=== PATIENT | female | born 1975 | race Caucasian/White ===

== ENCOUNTER 2016-06-04 19:51 | Emergency (ER) | payer SELFPAY ==
[~2016-06-04] VITALS: Ht 160 cm; Wt 168.0 kg
[~2016-06-04 19:51] MED LIST: METH750T2 PO; MOBI15TA PO; TRAZ50TA4 PO; ZIPR1CAP27 PO
[2016-06-04 19:54] VITALS: BP 233/110; PULSE 85; RESP 18; TEMP 98.8; O2SAT 98
[2016-06-05] MEDS ORDERED: SODIUM CHLOR 0.9% 1000 ML INJ 1,000 ML IV SCH (01:24)
--- NOTE | 2016-06-05 01:29 | PD ---
HPI Chief Complaint: GI Complaint Time Seen by Provider: 01:19 Travel History International Travel<30 days: No Contact w/Intl Traveler<30days: No Traveled to known affect area: No History of Present Illness HPI The patient is a 41-year-old female who presents to the emergency department for abdominal pain. The patient states she developed abdominal pain on night. The abdominal pain is epigastrium to right upper quadrant, burning, nonradiating, and associated with nausea and vomiting. The patient states that her vomitus smells like feces. The patient's last bowel movement was yesterday, normal. The patient denies any history of previous abdominal surgeries, but does have a history nephrolithiasis. The patient denies any dysuria, frequency, urgency, or diarrhea. She denies any associated fever. The patient occasionally goes to the [facility] for medical care, but does not have a local primary physician. The patient denies taking any medications on a regular basis. The symptoms are moderate, there are no alleviating or exacerbating factors. PFSH Past Medical History Asthma: No Autoimmune Disease: No Blood Disorders: No Anxiety: Yes Depression: Yes Cancer: No Cardiovascular Problems: No COPD: No Diabetes: No Diminished Hearing: No Endocrine: No Gastrointestinal Disorders: No Genitourinary: Yes (13 LITHOTRIPSY) Immune Disorder: No Kidney Stones: Yes Musculoskeletal: No Neurologic: No Psychiatric: No Reproductive: No Respiratory: No Immunizations Current: No Tetanus Vaccination: Unknown ?: Not LMP: 05/24/16 Menopausal: Yes : 4 Para: 4 Tubal Ligation: Yes (2005) Past Surgical History Abdominal Surgery: Yes Cardiac Surgery: No Section: Yes Ear Surgery: No Endocrine Surgery: Yes Eye Surgery: No Genitourinary Surgery: Yes (13 LITHOTRIPSIES HAS 4 STENTS RIGHT KIDNEY) Gynecologic Surgery: Yes (C SECTION, TUBAL LIGATION) Oral Surgery: No Pacemaker: No Thoracic Surgery: No Other Surgery: Yes Social History Alcohol Use: No (quit 2.5 years) Tobacco Use: Yes (02/15 ppd) Substance Use: No Allergies-Medications (Allergen,Severity, Reaction): Coded Allergies: Codeine (Verified Allergy, Unknown, VOMITTING, 06/04/16) Tramadol (Verified Adverse Reaction, Intermediate, gi upset, 06/04/16) Reported Meds & Prescriptions Reported Meds & Active Scripts Active No Active Prescriptions or Reported Medications Review of Systems Except as stated in HPI: all other systems reviewed are Neg General / Constitutional: No: Fever Cardiovascular: No: Chest Pain or Discomfort Respiratory: No: Shortness of Breath Gastrointestinal: Positive: Nausea, Vomiting, Abdominal Pain, No: Diarrhea, Changes in Bowel Habits Genitourinary: No: Dysuria Physical Exam Narrative GENERAL: Awake, alert, pleasant 41 year-old female who appears her stated age and is in no acute respiratory distress. SKIN: Focused skin assessment warm/dry. HEAD: Atraumatic. Normocephalic. EYES: No injection or drainage. ENT: No nasal bleeding or discharge. Poor dentition. NECK: Trachea midline. No JVD. CARDIOVASCULAR: Regular rate and rhythm. No murmur appreciated. RESPIRATORY: No accessory muscle use. Clear to auscultation. Breath sounds equal bilaterally. GASTROINTESTINAL: Abdomen soft, obese with a large pannus. Tender palpation epigastrium to periumbilical. Negative Montoya's. Negative McBurney's. Back: No CVA tenderness. MUSCULOSKELETAL: No obvious deformities. No clubbing. No cyanosis. No edema. NEUROLOGICAL: Awake and alert. No obvious cranial nerve deficits. Motor grossly within normal limits. Normal speech. PSYCHIATRIC: Appropriate mood and affect; insight and judgment normal. Data Data Last Documented VS Vital Signs Date Time Temp Pulse Resp B/P Pulse Ox O2 Delivery O2 Flow Rate FiO2 06/05/16 02:45 18 06/04/16 19:54 98.8 85 233/110 98 Room Air Orders Complete Blood Count With Diff (06/05/16 01:24) Comprehensive Metabolic Panel (06/05/16 01:24) Lipase (06/05/16 01:24) Urinalysis - C+S If Indicated (06/05/16 01:24) Ct Abd/Pel W/O Iv Contrast (06/05/16 01:24) Iv Access Insert/Monitor (06/05/16 01:24) Ecg Monitoring (06/05/16:24) Oximetry (06/05/16:24) Morphine Inj (Morphine Inj) (06/05/16 01:30) Ondansetron Inj (Zofran Inj) (06/05/16 01:30) Sodium Chlor 0.9% 1000 Ml Inj (Ns 1000 M (06/05/16 01:24) Sodium Chloride 0.9% Flush (Ns Flush) (06/05/16 01:30) Famotidine Inj (Pepcid Inj) (06/05/16 01:30) Al-Mag Hy-Si 40-40-4 Mg/Ml Liq (Mag-Al P (06/05/16 01:30) Lidocaine 2% Viscous (Xylocaine 2% Visco (06/05/16 01:30) Labs Laboratory Tests Test 06/05/16 06/05/16 06/05/16 01:30 01:55 02:21 Sodium Level 140 MEQ/L Potassium Level 3.2 MEQ/L Chloride Level 104 MEQ/L Carbon Dioxide Level 29.9 MEQ/L Anion Gap 6 MEQ/L Blood Urea Nitrogen 10 MG/DL Creatinine 0.78 MG/DL Estimat Glomerular Filtration 81 ML/MIN Rate Random Glucose 108 MG/DL Calcium Level 9.7 MG/DL Total Bilirubin 0.2 MG/DL Aspartate Amino Transf 20 U/L (AST/SGOT) Alanine Aminotransferase 23 U/L (ALT/SGPT) Alkaline Phosphatase 95 U/L Total Protein 7.9 GM/DL Albumin 3.9 GM/DL Lipase 59 U/L Urine Color YELLOW Urine Turbidity HAZY Urine pH 5.5 Urine Specific [place] 1.027 Urine Protein TRACE mg/dL Urine Glucose (UA) NEG mg/dL Urine Ketones NEG mg/dL Urine Occult Blood NEG Urine Nitrite NEG Urine Bilirubin NEG Urine Urobilinogen 2.0 MG/DL Urine Leukocyte Esterase TRACE Urine RBC 1 /hpf Urine WBC 4 /hpf Urine Squamous Epithelial 5 /hpf Cells Urine Bacteria RARE /hpf Urine Hyaline Casts 1 /lpf Urine Mucus FEW /lpf Microscopic Urinalysis Comment CULT NOT INDICATED White Blood Count 9.3 TH/MM3 Red Blood Count 4.76 MIL/MM3 Hemoglobin 14.5 GM/DL Hematocrit 41.7 % Mean Corpuscular Volume 87.7 FL Mean Corpuscular Hemoglobin 30.4 PG Mean Corpuscular Hemoglobin 34.7 % Concent Red Cell Distribution Width 13.4 % Platelet Count 288 TH/MM3 Mean Platelet Volume 8.8 FL Neutrophils (%) (Auto) 54.8 % Lymphocytes (%) (Auto) 30.4 % Monocytes (%) (Auto) 8.9 % Eosinophils (%) (Auto) 4.7 % Basophils (%) (Auto) 1.2 % Neutrophils # (Auto) 5.1 TH/MM3 Lymphocytes # (Auto) 2.8 TH/MM3 Monocytes # (Auto) 0.8 TH/MM3 Eosinophils # (Auto) 0.4 TH/MM3 Basophils # (Auto) 0.1 TH/MM3 CBC Comment DIFF FINAL Differential Comment MDM Medical Decision Making Medical Screen Exam Complete: Yes Emergency Medical Condition: Yes Medical Record Reviewed: Yes Interpretation(s) Last Impressions Abdomen/Pelvis CT 06/05/16 0124 Signed Impressions: Service Date/Time: Sunday, June 05, 2016 01:59 - CONCLUSION: Normal examination. Prince Echeverria Jr., MD Laboratory Tests Test 06/05/16 06/05/16 06/05/16 01:30 01:55 02:21 Sodium Level 140 MEQ/L Potassium Level 3.2 MEQ/L Chloride Level 104 MEQ/L Carbon Dioxide Level 29.9 MEQ/L Anion Gap 6 MEQ/L Blood Urea Nitrogen 10 MG/DL Creatinine 0.78 MG/DL Estimat Glomerular Filtration 81 ML/MIN Rate Random Glucose 108 MG/DL Calcium Level 9.7 MG/DL Total Bilirubin 0.2 MG/DL Aspartate Amino Transf 20 U/L (AST/SGOT) Alanine Aminotransferase 23 U/L (ALT/SGPT) Alkaline Phosphatase 95 U/L Total Protein 7.9 GM/DL Albumin 3.9 GM/DL Lipase 59 U/L Urine Color YELLOW Urine Turbidity HAZY Urine pH 5.5 Urine Specific [place] 1.027 Urine Protein TRACE mg/dL Urine Glucose (UA) NEG mg/dL Urine Ketones NEG mg/dL Urine Occult Blood NEG Urine Nitrite NEG Urine Bilirubin NEG Urine Urobilinogen 2.0 MG/DL Urine Leukocyte Esterase TRACE Urine RBC 1 /hpf Urine WBC 4 /hpf Urine Squamous Epithelial 5 /hpf Cells Urine Bacteria RARE /hpf Urine Hyaline Casts 1 /lpf Urine Mucus FEW /lpf Microscopic Urinalysis Comment CULT NOT INDICATED White Blood Count 9.3 TH/MM3 Red Blood Count 4.76 MIL/MM3 Hemoglobin 14.5 GM/DL Hematocrit 41.7 % Mean Corpuscular Volume 87.7 FL Mean Corpuscular Hemoglobin 30.4 PG Mean Corpuscular Hemoglobin 34.7 % Concent Red Cell Distribution Width 13.4 % Platelet Count 288 TH/MM3 Mean Platelet Volume 8.8 FL Neutrophils (%) (Auto) 54.8 % Lymphocytes (%) (Auto) 30.4 % Monocytes (%) (Auto) 8.9 % Eosinophils (%) (Auto) 4.7 % Basophils (%) (Auto) 1.2 % Neutrophils # (Auto) 5.1 TH/MM3 Lymphocytes # (Auto) 2.8 TH/MM3 Monocytes # (Auto) 0.8 TH/MM3 Eosinophils # (Auto) 0.4 TH/MM3 Basophils # (Auto) 0.1 TH/MM3 CBC Comment DIFF FINAL Differential Comment Differential Diagnosis Differential diagnosis includes gastritis, peptic ulcer disease, pancreatitis, bili or colic, cholecystitis, AAA, hiatal hernia, GERD. Narrative Course IV was established, labs are drawn and sent, and the patient was placed on cardiac telemetry monitoring and continuous pulse oximetry monitoring. The patient was administered morphine, Zofran, and IV fluids. CT of the abdomen and pelvis was ordered. CT of the abdomen and pelvis reveals a normal examination. Laboratory evaluation is unremarkable except for potassium 3.2, which was replaced orally. Lipase is slightly low at 59. Patient has epigastric abdominal pain, may have gastritis versus peptic ulcer disease. The patient will be placed on Zantac and is advised to follow-up with a primary physician. If her symptoms persist, patient will need outpatient follow-up with gastroenterology. The patient will be provided a copy of her labs at discharge. Diagnosis Primary Impression: Abdominal pain Qualified Code: R10.13 - Epigastric pain Additional Impression: Gastritis Qualified Code: K29.00 - Acute gastritis, presence of bleeding unspecified, unspecified gastritis type Patient Instructions: General Instructions, Narcotic given in the ED Additional Instructions: Zantac and Zofran as directed. Follow-up with your primary physician, you may benefit from outpatient follow-up with gastroenterology for EGD if symptoms persist. Return if symptoms worsen or progress. Med/Other Pt SpecificInfo: Prescription(s) given Scripts Ondansetron Odt (Zofran Odt)4 Mg Tab4 Mg SL Q6HR PRN (Nausea/Vomiting) #10 TAB Ref 0 Prov:Dakota Boston MD 06/05/16 Ranitidine (Zantac 150 Maximum Strength)150 Mg [id number] Mg PO BID 14 Days Prov:Dakota Boston MD 06/05/16 Disposition: DISCHARGE HOME Condition: Stable Dakota Boston MD Jun 05, 2016 01:29
[2016-06-05] MEDS ORDERED: FAMOTIDINE 20 MG/2 ML VIAL IV PUSH ONE (01:30)
[2016-06-05] MEDS ORDERED: MORPHINE SULFATE 4 MG/ML INJ IV PUSH ONE ×2 (01:30→03:30)
[2016-06-05] MEDS ORDERED: ALUMINUM/MAGNESIUM/SIMETH 30 ML CUP PO ONE (01:30)
[2016-06-05] MEDS ORDERED: SODIUM CHLORIDE 0.9% FLUSH 10 ML FLUSH IV FLUSH PRN (01:30)
[2016-06-05] MEDS ORDERED: ONDANSETRON HCL 4 MG/2 ML VIAL IVP ONE (01:30)
[2016-06-05] MEDS ORDERED: LIDOCAINE VISCOUS 2% SOLN 15 ML UDC PO ONE (01:30)
[2016-06-05 01:59] LABS: ANION GAP 6 MEQ/L (5-15); AST (GOT) 20 U/L (15-37); BICARBONATE 29.9 MEQ/L (21.0-32.0); BLOOD UREA NITROGEN 10 MG/DL (7-18); CHLORIDE 104 MEQ/L (98-107); GLOMERULAR FILTRATION RATE 81 ML/MIN (>89); POTASSIUM 3.2 MEQ/L (3.5-5.1); SODIUM (NA) 140 MEQ/L (136-145)
[2016-06-05 02:01] LABS: ALKALINE PHOSPHATASE 95 U/L (45-117); ALT (GPT) 23 U/L (10-53); TOTAL BILIRUBIN ADULT 0.2 MG/DL (0.2-1.0)
[2016-06-05 02:05] VITALS: O2SAT 97
[2016-06-05 02:11] LABS: BACTERIA, URINE RARE /hpf; BLOOD, URINE NEG (NEG); GLUCOSE,URINE NEG (NEG); HYALINE CAST, URINE 1 /lpf (RARE); KETONE, URINE NEG (NEG); MUCUS URINE FEW /lpf (OCC); NITRITE,URINE NEG (NEG); PH, URINE 5.5 (5.0-8.5); SQUAMOUS EPITHELIAL CELL URINE 5 /hpf (0-5); URINE COLOR YELLOW (YELLW/STRAW)
[2016-06-05 02:12] LABS: COMMENT (UR) CULT NOT INDICATED; CULTURE IF INDICATED CULT NOT INDICATED
--- NOTE | 2016-06-05 02:17 | RADRPT ---
EXAM DATE/TIME: 06/05/2016 01:59 [facility] COMPARISON: CT ABDOMEN & PELVIS W/O CONTRAST, September 08, 2013, 1:49. INDICATIONS : Right upper quadrant and epigastric pain. ORAL CONTRAST: No oral contrast ingested. RADIATION DOSE: 29.90 CTDIvol (mGy) MEDICAL HISTORY : Renal calculi. SURGICAL HISTORY : Tubal ligation. section. ENCOUNTER: Initial ACUITY: 1 day PAIN SCALE: 7/10 LOCATION: Abdomen TECHNIQUE: Volumetric scanning of the abdomen and pelvis was performed. Using automated exposure control and ad justment of the mA and/or kV according to patient size, radiation dose was kept as low as reasonably achievable to obtain optimal diagnostic quality images. FINDINGS: LOWER LUNGS: The visualized lower lungs are clear. LIVER: Homogeneous density without lesion. There is no dilation of the biliary tree. No calcified gallston es. SPLEEN: Normal size without lesion. PANCREAS: Within normal limits. KIDNEYS: Normal in size and shape. There is no mass, stone, or hydronephrosis. ADRENAL GLANDS: Within normal limits. VASCULAR: There is no aortic aneurysm. BOWEL/MESENTERY: The stomach, small bowel, and colon demonstrate no acute abnormality. There is no free intraperitone al air or fluid. Appendix is normal by CT criteria. ABDOMINAL WALL: Within normal limits. RETROPERITONEUM: There is no lymphadenopathy. BLADDER: No wall thickening or mass. REPRODUCTIVE: Within normal limits. INGUINAL: There is no lymphadenopathy or hernia. MUSCULOSKELETAL: Within normal limits for patient age. CONCLUSION: Normal examination. Prince Echeverria Jr., MD on June 05, 2016 at 2:13 Board Certified Radiologist. This report was verified electronically.
[2016-06-05 02:44] LABS: AUTOMATED NEUTROPHIL # 5.1 TH/MM3 (1.8-7.7); BASOPHIL # 0.1 TH/MM3 (0-0.2); BASOPHIL % 1.2 % (0.0-2.0); EOSINOPHIL # 0.4 TH/MM3 (0-0.4); EOSINOPHIL % 4.7 % (0.0-4.0); HEMATOCRIT 41.7 % (35.0-46.0); HEMO FLAGS DIFF FINAL; LYMPH % 30.4 % (9.0-44.0); LYMPHOCYTE # 2.8 TH/MM3 (1.0-4.8); MEAN CELL VOLUME 87.7 FL (80.0-100.0); MEAN CORPUSCULAR HEMOGLOBIN 30.4 PG (27.0-34.0); MEAN CORPUSCULAR HGB CONC 34.7 % (32.0-36.0); MONO % 8.9 % (0.0-8.0); NEUT % 54.8 % (16.0-70.0); PLATELET COUNT 288 TH/MM3 (150-450); RED BLOOD COUNT 4.76 MIL/MM3 (4.00-5.30); RED CELL DISTRIBUTION WIDTH 13.4 % (11.6-17.2); WHITE BLOOD COUNT 9.3 TH/MM3 (4.0-11.0)
[2016-06-05] MEDS ORDERED: ZANTTAB PO ×2 (03:23→03:57)
[2016-06-05] MEDS ORDERED: ZOFR4TAB3 SL ×2 (03:23→03:57)
[2016-06-05] MEDS ORDERED: POTASSIUM CHLORIDE 20 MEQ CONTROLLED RELEASE TAB PO ONE (03:30)
[2016-06-05 04:08] VITALS: RESP 18
== END 2016-06-05 04:07 | disposition home or self-care (01) ==
LOC: NEPC 19:51
DX: K29.00 Acute gastritis without bleeding (principal)
CPT/HCPCS: 74176; 80053; 81001; 83690; 85025; 96361; 96374; 96375; 96376; 99284; J2270; J2405; J7030

== ENCOUNTER 2016-12-01 08:37 | Emergency (ER) | payer MEDICAID ==
[~2016-12-01] VITALS: Ht 160 cm; Wt 170.0 kg
[~2016-12-01 08:37] MED LIST changes: -METH750T2 PO; -MOBI15TA PO; -TRAZ50TA4 PO; +ZANTTAB PO; -ZIPR1CAP27 PO; +ZOFR4TAB3 SL
[2016-12-01 08:39] VITALS: BP 196/128; PULSE 106; RESP 20; TEMP 98.9; O2SAT 98
[2016-12-01 09:24] VITALS: BP 279/148
[2016-12-01] MEDS ORDERED: AMLO5TAB2 PO (09:45)
[2016-12-01] MEDS ORDERED: PENICILLIN V POTASSIUM 500 MG TAB PO ONE (09:45)
[2016-12-01] MEDS ORDERED: HYDR-3533 PO (09:45)
[2016-12-01] MEDS ORDERED: amLODIPine BESYLATE 5 MG TAB PO ONE (09:45)
[2016-12-01] MEDS ORDERED: ACETAMINOPHEN/HYDROcodone 325 MG/5 MG TAB PO ONE (09:45)
[2016-12-01] MEDS ORDERED: PENI500T PO (09:45)
--- NOTE | 2016-12-01 09:46 | PD ---
HPI Chief Complaint: Oral / Dental Pain or Problem Time Seen by Provider: 09:15 Travel History International Travel<30 days: No Contact w/Intl Traveler<30days: No Traveled to known affect area: No History of Present Illness HPI 40 year-old woman, history of obesity, currently being evaluated for occult blood pressure, presents emergent heart complaining of dental pain. She has pain in her bottom left bicuspid where he recently fractured him ongoing for several days. Tried [id number] medications without relief. Pain radiates into the jaw and throughout the jaw. Pain is been severe. States she otherwise had been feeling well before this started. She has an appointment with her primary physician in the next several days address her blood pressure. States her blood pressures always been high since she stopped drinking. No chest pain. No trouble breathing. She states she's also been sick with cough cold congestion symptoms and blow her nose yesterday and ever some blood in it. No other complaints. She states she's taken some [id number] cough cold medicine but does not think she is taking anything with Sudafed or phenylephrine. History Past Medical History Narrative Medical Obesity Menopausal: Yes : 4 Para: 4 Social History Alcohol Use: No (quit 2.5 years) Tobacco Use: Yes (1/2 ppd) Allergies-Medications (Allergen,Severity, Reaction): Coded Allergies: codeine (Unverified Allergy, Unknown, VOMITTING, 12/01/16) tramadol (Unverified Adverse Reaction, Intermediate, gi upset, 12/01/16) Reported Meds & Prescriptions Reported Meds & Active Scripts Active No Active Prescriptions or Reported Medications Review of Systems Except as stated in HPI: all other systems reviewed are Neg Physical Exam Narrative GENERAL: Obese 40 year-old woman, no acute distress. SKIN: Focused skin assessment warm/dry. HEAD: Atraumatic. Normocephalic. EYES: Pupils equal and round. No scleral icterus. No injection or drainage. ENT: No nasal bleeding or discharge. Mucous membranes pink and moist. Poor dentition. She's got a fracture to obvious decay with tenderness to percussion in the left front bicuspid. There is minimal visible fullness to the left side of the face externally. Is no obvious fluctuance abscess or purulent drainage. NECK: Trachea midline. No JVD. CARDIOVASCULAR: Regular rate and rhythm. No murmur appreciated. RESPIRATORY: No accessory muscle use. Clear to auscultation. Breath sounds equal bilaterally. GASTROINTESTINAL: Abdomen soft, non-tender, nondistended. Hepatic and splenic margins not palpable. MUSCULOSKELETAL: No obvious deformities. Data Data Last Documented VS Vital Signs Date Time Temp Pulse Resp B/P (MAP) Pulse Ox O2 Delivery O2 Flow Rate FiO2 12/01/16 09:24 279/148 (191) 12/01/16 08:39 98.9 106 20 98 Room Air Orders Orders Acetamin-Hydrocod 325-5 Mg ([place] 5-325 (12/01/16 09:45) Penicillin V Potassium (Veetids) (12/01/16 09:45) Amlodipine (Norvasc) (12/01/16 09:45) MDM Medical Decision Making Medical Screen Exam Complete: Yes Emergency Medical Condition: Yes Differential Diagnosis Dental infection, abscess, odontalgia, other Narrative Course Medical decision making 38 year-old woman presents to the ED with dental pain and elevated blood pressure. No cardiac symptoms. Jaw pains clearly related to dental fracture and infection. We'll recommend antibiotics, pain medicine, and will start on oral blood pressure medication and have her follow-up with her primary physician in the next day or 2 for repeat evaluation. Diagnosis Primary Impression: Dental infection Additional Impression: Elevated blood pressure reading Med/Other Pt SpecificInfo: Prescription(s) given Scripts Amlodipine (Amlodipine) 5 Mg Tab 5 MG PO DAILY for Blood Pressure Management, #30 TAB 0 Refills Prov: Logan Graves MD 12/01/16 Hydrocodone-Acetaminophen (Lortab) 5-325 Mg Tab 1 TAB PO Q6H Y for PAIN, #8 TAB 0 Refills Prov: Logan Graves MD 12/01/16 Penicillin V Potassium (Penicillin V Potassium) 500 Mg Tab 500 MG PO Q8H for Infection for 10 Days, #30 TAB 0 Refills Prov: Logan Graves MD 12/01/16 Disposition: 01 DISCHARGE HOME Condition: Stable Logan Graves MD Dec 01, 2016 09:46
[2016-12-01 10:19] VITALS: RESP 18
== END 2016-12-01 10:20 | disposition home or self-care (01) ==
LOC: NEPD 08:37
DX: K04.7 Periapical abscess without sinus (principal); R03.0 Elevated blood-pressure reading, without diagnosis of hypertension; E66.9 Obesity, unspecified; Z72.0 Tobacco use
CPT/HCPCS: 99284

== ENCOUNTER 2017-01-14 07:44 | Emergency (ER) | payer MEDICAID ==
[~2017-01-14] VITALS: Ht 160 cm; Wt 176.0 kg
[~2017-01-14 07:44] MED LIST changes: +AMLO5TAB2 PO; +HYDR-3533 PO; +PENI500T PO; -ZANTTAB PO; -ZOFR4TAB3 SL
[2017-01-14] MEDS ORDERED: HYDR-4107 PO (07:54)
[2017-01-14] MEDS ORDERED: unknown bp med (07:54)
[2017-01-14 07:56] VITALS: BP 148/82; PULSE 101; RESP 19; TEMP 98.6; O2SAT 96
[2017-01-14] MEDS ORDERED: SODIUM CHLORIDE 0.9% FLUSH 10 ML FLUSH IV FLUSH PRN (08:00)
--- NOTE | 2017-01-14 08:05 | PD ---
HPI Chief Complaint: Flank/Kidney Pain Time Seen by Provider: 07:50 Travel History International Travel<30 days: No Contact w/Intl Traveler<30days: No Traveled to known affect area: No History of Present Illness HPI Patient comes in complaining of right flank pain began around 5 AM this morning. Patient states that pain feels similar to previous kidney stones. Patient also complaining of painful urination that began yesterday. Describes pain as a pressure-like in nature. Denies any fevers, nausea and vomiting, diarrhea, chest pain, or shortness of breath. Patient denies doing anything for this. Denies anything making symptoms better or worse. Patient reports she has hydrocodone at home for pain secondary to recent dental procedure but did not try taking this. PFSH Past Medical History Asthma: No Autoimmune Disease: No Blood Disorders: No Anxiety: Yes Depression: Yes Cancer: No Cardiovascular Problems: No COPD: No Diabetes: No Diminished Hearing: No Endocrine: No Gastrointestinal Disorders: No Genitourinary: Yes (13 LITHOTRIPSY) Headaches: Yes Hypertension: Yes Immune Disorder: No Kidney Stones: Yes Musculoskeletal: No Neurologic: No Psychiatric: No Reproductive: No Respiratory: No Immunizations Current: No ?: Not Menopausal: Yes : 4 Para: 4 Tubal Ligation: Yes (2005) Past Surgical History Abdominal Surgery: Yes Cardiac Surgery: No Section: Yes Ear Surgery: No Endocrine Surgery: Yes Eye Surgery: No Genitourinary Surgery: Yes (13 LITHOTRIPSIES ) Gynecologic Surgery: Yes (C SECTION, TUBAL LIGATION) Neurologic Surgery: No Oral Surgery: Yes (all teeth extracted for dentures) Pacemaker: No Thoracic Surgery: No Other Surgery: Yes Social History Alcohol Use: No (quit 2.5 years) Tobacco Use: Yes (1/2 ppd) Substance Use: No Allergies-Medications (Allergen,Severity, Reaction): Coded Allergies: codeine (Unverified Allergy, Unknown, VOMITTING, 01/14/17) tramadol (Unverified Adverse Reaction, Intermediate, gi upset, 01/14/17) Reported Meds & Prescriptions Reported Meds & Active Scripts Active Pyridium (Phenazopyridine HCl) 100 Mg Tab 200 Mg PO Q8HR 2 Days Bactrim DS (Sulfamethoxazole-Trimethoprim) 800-160 Mg Tab 1 Tab PO BID 14 Days Amlodipine (Amlodipine Besylate) 5 Mg Tab 5 Mg PO DAILY Penicillin V Potassium 500 Mg Tab 500 Mg PO Q8H 10 Days Reported Hydrocodone-Acetaminophen 5-300 Mg Tab 1 Tab PO Q6H PRN [unknown bp med] Review of Systems Except as stated in HPI: all other systems reviewed are Neg Physical Exam Narrative GENERAL: Well-developed, overly nourished, in no acute distress, and non-ill appearing. SKIN: Focused skin assessment warm and dry. HEAD: Atraumatic. Normocephalic. EYES: Pupils equal and round. EOMI. No scleral icterus. No injection or drainage. ENT: No nasal bleeding or discharge. Mucous membranes pink and moist. NECK: Trachea midline. Supple. No nuclear rigidity. RESPIRATORY: No accessory muscle use. No respiratory distress. GASTROINTESTINAL: Abdomen soft, non-tender, nondistended, and no guarding. Hepatic and splenic margins not palpable. Normal bowel sounds 4. No pulsatile mass. Patient reports right CVA tenderness. MUSCULOSKELETAL: No obvious deformities. No clubbing. No cyanosis. No edema. Full range of motion. NEUROLOGICAL: Awake and alert. No obvious cranial nerve deficits. Motor grossly within normal limits. Normal speech. PSYCHIATRIC: Appropriate mood and affect; insight and judgment normal. Data Data Last Documented VS Vital Signs Date Time Temp Pulse Resp B/P (MAP) Pulse Ox O2 Delivery O2 Flow Rate FiO2 01/14/17 10:16 01/14/17 07:56 98.6 101 19 96 Room Air Orders Orders Urinalysis - C+S If Indicated (01/14/17 07:52) Ct Abd/Pel W/O Iv Contrast (01/14/17 07:52) Iv Access Insert/Monitor (01/14/17 07:52) Ecg Monitoring (01/14/17 07:52) Oximetry (01/14/17 07:52) Sodium Chloride 0.9% Flush (Ns Flush) (01/14/17 08:00) Ketorolac Inj (Toradol Inj) (01/14/17 08:15) Urine Culture (01/14/17 08:07) Sulfamet-Trimeth Ds 800-160 Mg (Bactrim (01/14/17 09:45) Phenazopyridine (Pyridium) (01/14/17 09:45) Acetamin-Hydrocod 325-5 Mg ([place] 5-325 (01/14/17 10:00) Ed Discharge Order (01/14/17 09:50) Labs Laboratory Tests Test 01/14/17 08:07 Urine Color YELLOW Urine Turbidity HAZY Urine pH 5.5 Urine Specific [place] 1.020 Urine Protein 30 mg/dL Urine Glucose (UA) NEG mg/dL Urine Ketones NEG mg/dL Urine Occult Blood MOD Urine Nitrite POS Urine Bilirubin NEG Urine Urobilinogen LESS THAN 2.0 MG/DL Urine Leukocyte Esterase LARGE Urine RBC 102 /hpf Urine WBC 122 /hpf Urine Squamous Epithelial Cells 2 /hpf Urine Bacteria FEW /hpf Urine White Blood Cell Casts 10 /lpf Urine Mucus FEW /lpf Microscopic Urinalysis Comment CULTURE INDICATED MDM Medical Decision Making Medical Screen Exam Complete: Yes Emergency Medical Condition: Yes Interpretation(s) Last Impressions Abdomen/Pelvis CT 01/14/17 0752 Signed Impressions: Service Date/Time: Tuesday, January 14, 2017 08:41 - CONCLUSION: No acute CT findings in the abdomen or pelvis. Anatoliy Merchant MD Differential Diagnosis UTI, pyelonephritis, renal calculi, hydronephrosis Narrative Course The patient presentation with history and evaluation are consistent with uncomplicated pyelonephritis. The patient looks great and is tolerating fluids. No significant co morbidities. There is no evidence to suspect sepsis or bacteremia. The patient was discharged on antibiotics and given warnings to return if condition worsens in anyway, vomiting and unable to tolerate medications or fluids, worsening back pain or as needed. The patient agrees with plan of care. The patient was instructed to follow up with their physician for re-evaluation but may return here as needed. There is no clinical evidence to suggest atypical appendicitis, or vascular pathology (AAA, etc.). There is no clinical evidence to suggest atypical cervicitis, PID or TOA. Patient in no obvious distress upon re-evaluation. All pertinent laboratory/ Radiology result(s) discussed with patient. Patient was asked if they wanted to speak to my attending, which the patient did not wish to do at this time. Any questions/concerns in reference to patient diagnosis/condition discussed and clarified prior to patient's discharge. Reinforced sheer importance of close follow up with patient's primary physician or primary care clinic. Instructed patient to return to ED immediately, if symptoms return/worsen. Patient showed understanding of above instructions. Further instructions and recommendations were detailed in discharge paperwork. Patient ambulated without difficulty out of ED at discharge. Diagnosis Primary Impression: Pyelonephritis Patient Instructions: General Instructions, Kidney Infection (ED), Urinary Tract Infection in Women (ED) Additional Instructions: Follow-up with your primary care physician and/or urologist next week for reevaluation. Take all medication as prescribed. Drink plenty of non- caffeinated and nonalcoholic fluids. Return to the emergency department if symptoms get worse. Med/Other Pt SpecificInfo: Prescription(s) given Scripts Phenazopyridine (Pyridium) 100 Mg Tab 200 MG PO Q8HR for Dysuria for 2 Days, TAB 0 Refills Prov: Tristan Rouse MD 01/14/17 Sulfamethoxazole-Trimethoprim (Bactrim DS) 800-160 Mg Tab 1 TAB PO BID for Infection for 14 Days, #28 TAB 0 Refills Prov: Tristan Rouse MD 01/14/17 Disposition: 01 DISCHARGE HOME Condition: Stable Yamil Magallon Jan 14, 2017 08:05
[2017-01-14] MEDS ORDERED: KETOROLAC TROMETHAMINE 60 MG/2 ML (IM) VIAL IM ONE (08:15)
[2017-01-14 08:34] LABS: BACTERIA, URINE FEW /hpf; BLOOD, URINE MOD (NEG); COMMENT (UR) CULTURE INDICATED; CULTURE IF INDICATED CULTURE INDICATED; GLUCOSE,URINE NEG (NEG); KETONE, URINE NEG (NEG); MUCUS URINE FEW /lpf (OCC); NITRITE,URINE POS (NEG); PH, URINE 5.5 (5.0-8.5); SQUAMOUS EPITHELIAL CELL URINE 2 /hpf (0-5); URINE COLOR YELLOW (YELLW/STRAW); WHITE BLOOD CELL CAST, URINE 10 /lpf
--- NOTE | 2017-01-14 09:34 | RADRPT ---
EXAM DATE/TIME: 01/14/2017 08:41 [facility] COMPARISON: No previous studies available for comparison. INDICATIONS : Right flank pain. ORAL CONTRAST: No oral contrast ingested. RADIATION DOSE: 16.91 CTDIvol (mGy) MEDICAL HISTORY : None SURGICAL HISTORY : section. Tubal ligation. ENCOUNTER: Initial ACUITY: 1 day PAIN SCALE: 10/10 LOCATION: Right flank TECHNIQUE: Volumetric scanning of the abdomen and pelvis was performed. Using automated exposure control and ad justment of the mA and/or kV according to patient size, radiation dose was kept as low as reasonably achievable to obtain optimal diagnostic quality images. DICOM format image data is available electro nically for review and comparison. FINDINGS: LOWER LUNGS: The visualized lower lungs are clear. LIVER: Homogeneous density without lesion. There is no dilation of the biliary tree. No calcified gallston es. SPLEEN: Normal size without lesion. PANCREAS: Within normal limits. KIDNEYS: Normal in size and shape. There is no mass, stone, or hydronephrosis. ADRENAL GLANDS: Within normal limits. VASCULAR: There is no aortic aneurysm. BOWEL/MESENTERY: The stomach, small bowel, and colon demonstrate no acute abnormality. There is no free intraperitone al air or fluid. ABDOMINAL WALL: Within normal limits. RETROPERITONEUM: There is no lymphadenopathy. BLADDER: No wall thickening or mass. REPRODUCTIVE: Within normal limits. INGUINAL: There is no lymphadenopathy or hernia. MUSCULOSKELETAL: Within normal limits for patient age. CONCLUSION: No acute CT findings in the abdomen or pelvis. Anatoliy Merchant MD on January 14, 2017 at 9:27 Board Certified Radiologist. This report was verified electronically.
[2017-01-14] MEDS ORDERED: PHENAZOPYRIDINE HCL 200 MG TAB PO ONE (09:45)
[2017-01-14] MEDS ORDERED: SULFAMETHOXAZOLE-TRIMETHOPRIM DS 800-160 MG TAB PO ONE (09:45)
[2017-01-14] MEDS ORDERED: PHEN0.4T PO (09:53)
[2017-01-14] MEDS ORDERED: BACT800T5 PO (09:53)
[2017-01-14] MEDS ORDERED: ACETAMINOPHEN/HYDROcodone 325 MG/5 MG TAB PO ONE (10:00)
== END 2017-01-14 10:17 | disposition home or self-care (01) ==
LOC: NEPD 07:44
DX: N12 Tubulo-interstitial nephritis, not specified as acute or chronic (principal); B96.20 Unspecified Escherichia coli [E. coli] as the cause of diseases classified elsewhere; F41.9 Anxiety disorder, unspecified; F32.9 Major depressive disorder, single episode, unspecified; I10 Essential (primary) hypertension; F17.200 Nicotine dependence, unspecified, uncomplicated; Z79.899 Other long term (current) drug therapy; Z87.442 Personal history of urinary calculi; Z88.5 Allergy status to narcotic agent
CPT/HCPCS: 74176; 81001; 87077; 87086; 87186; 96372; 99285; J1885

== ENCOUNTER 2017-06-28 10:59 | Inpatient (IN) | payer MEDICAID ==
[2017-06-28] VITALS (7 sets, daily range): BP systolic 133–167; BP diastolic 67–98; PULSE 97–126; RESP 20–26; TEMP 98.4–100.8; O2SAT 92–98
[~2017-06-28] VITALS: Ht 160 cm; Wt 159.7 kg
[~2017-06-28 10:59] MED LIST changes: +BACT800T5 PO; -HYDR-3533 PO; +HYDR-4107 PO; +PHEN0.4T PO; +unknown bp med
[2017-06-28] MEDS ORDERED: IODIXANOL 320 MG/ML 50 ML VIAL (for Rad CT) IVCONTRAST ONE (11:00)
--- NOTE | 2017-06-28 11:41 | PD ---
HPI Chief Complaint: Fever Time Seen by Provider: 11:22 Travel History International Travel<30 days: No Contact w/Intl Traveler<30days: No Traveled to known affect area: No History of Present Illness HPI 42-year-old female presents to the emergency department for evaluation of abdominal pain, fever, drainage from the umbilicus for approximately 2 days. Patient has history tubal ligation and lithotripsies. Patient states that she has also been having intermittent fevers. She last took ibuprofen at 830 this morning, no Tylenol for fever today. Patient reports the abdominal pain is in the right side of her abdomen. She reports vomiting 2 last night. She also states that she has had shortness of breath and intermittent chest pain. Patient also reports urinary symptoms for 2 days. She reports history of UTIs. No diarrhea. No exacerbating or alleviating factors. Moderate severity. Patient states this does not feel like her previous kidney stones. She states the pain is 10/10, sharp and aching to the right abdomen. PFSH Past Medical History Asthma: No Autoimmune Disease: No Blood Disorders: No Anxiety: Yes Depression: Yes Cancer: No Cardiovascular Problems: No High Cholesterol: Yes COPD: No Diabetes: No Diminished Hearing: No Endocrine: No Gastrointestinal Disorders: No Genitourinary: Yes (13 LITHOTRIPSY) Headaches: Yes Hypertension: Yes Immune Disorder: No Kidney Stones: Yes Musculoskeletal: No Neurologic: No Psychiatric: No Reproductive: No Respiratory: No Immunizations Current: No ?: Not Menopausal: Yes : 4 Para: 4 Tubal Ligation: Yes (2005) Past Surgical History Abdominal Surgery: Yes Cardiac Surgery: No Section: Yes Ear Surgery: No Endocrine Surgery: Yes Eye Surgery: No Genitourinary Surgery: Yes (13 LITHOTRIPSIES ) Gynecologic Surgery: Yes (C SECTION, TUBAL LIGATION) Neurologic Surgery: No Oral Surgery: Yes (all teeth extracted for dentures) Pacemaker: No Thoracic Surgery: No Other Surgery: Yes Social History Alcohol Use: No (quit 2.5 years) Tobacco Use: Yes (<1/2 ppd) Substance Use: No Allergies-Medications (Allergen,Severity, Reaction): Coded Allergies: ketorolac (Verified Allergy, Intermediate, Swelling, 06/28/17) codeine (Unverified Allergy, Unknown, VOMITTING, 06/28/17) tramadol (Unverified Adverse Reaction, Intermediate, gi upset, 06/28/17) Reported Meds & Prescriptions Reported Meds & Active Scripts Active Pyridium (Phenazopyridine HCl) 100 Mg Tab 200 Mg PO Q8HR 2 Days Bactrim DS (Sulfamethoxazole-Trimethoprim) 800-160 Mg Tab 1 Tab PO BID 14 Days Amlodipine (Amlodipine Besylate) 5 Mg Tab 5 Mg PO DAILY Penicillin V Potassium 500 Mg Tab 500 Mg PO Q8H 10 Days Reported Hydrocodone-Acetaminophen 5-300 Mg Tab 1 Tab PO Q6H PRN [unknown bp med] Review of Systems Except as stated in HPI: all other systems reviewed are Neg Physical Exam Narrative GENERAL: Well-nourished, well-developed obese female patient, temp of 100.8. SKIN: Focused skin assessment warm/dry. Patient has erythema and purulent drainage noted to the umbilicus. No fluctuance noted on exam. HEAD: Normocephalic. Atraumatic. EYES: No scleral icterus. No injection or drainage. NECK: Supple, trachea midline. No JVD or lymphadenopathy. CARDIOVASCULAR: Regular rhythm without murmurs, gallops, or rubs. Patient is tachycardic. RESPIRATORY: Breath sounds equal bilaterally. No accessory muscle use. Lung sounds are clear to auscultation. Patient is tachypneic. GASTROINTESTINAL: Abdomen soft and nondistended. She has tenderness over epigastric area and right side of the abdomen. MUSCULOSKELETAL: No cyanosis, or edema. BACK: Nontender without obvious deformity. Right CVA tenderness. Data Data Last Documented VS Vital Signs Date Time Temp Pulse Resp B/P (MAP) Pulse Ox O2 Delivery O2 Flow Rate FiO2 06/28/17 13:15 106 142/98 (113) 06/28/17 11:09 100.8 26 98 Orders Orders Sepsis Workup Initiated (06/28/17 ) Electrocardiogram (06/28/17 11:31) Complete Blood Count With Diff (06/28/17 11:31) Comprehensive Metabolic Panel (06/28/17 11:31) Prothrombin Time / Inr (Pt) (06/28/17 11:31) Act Partial Throm Time (Ptt) (06/28/17 11:31) Lactic Acid Sepsis Protocol (06/28/17 11:31) Magnesium (Mg) (06/28/17 11:31) Lipase (06/28/17 11:31) Ckmb (Isoenzyme) Profile (06/28/17 11:31) Troponin I (06/28/17 11:31) Urinalysis - C+S If Indicated (06/28/17 11:31) Influenzae A/B Antigen (06/28/17 11:31) Blood Culture (06/28/17 11:31) Wound Culture And Gram Stain (06/28/17 11:31) Chest, Single Ap (06/28/17 11:31) Blood Glucose (06/28/17 11:31) Ecg Monitoring (06/28/17 11:31) Iv Access Insert/Monitor (06/28/17 11:31) Oximetry (06/28/17 11:31) Oxygen Administration (06/28/17 11:31) Acetaminophen (Tylenol) (06/28/17 11:45) Ct Abd/Pel W Iv Contrast(Rout) (06/28/17 11:31) Ed Urine Pregnancytest Poc (06/28/17 11:31) Sodium Chlor 0.9% 1000 Ml Inj (Ns 1000 M (06/28/17 11:45) Sodium Chlor 0.9% 1000 Ml Inj (Ns 1000 M (06/28/17 11:45) Morphine Inj (Morphine Inj) (06/28/17 11:45) Metoclopramide Inj (Reglan Inj) (06/28/17 11:45) Chest, Pa & Lat (06/28/17 ) Vancomycin Inj (Vancomycin Inj) (06/28/17 12:45) Piperacil-Tazo 3.375 Gm Premix (Zosyn 3. (06/28/17 12:45) Urine Culture (06/28/17 11:40) Morphine Inj (Morphine Inj) (06/28/17 13:30) Potassium Chloride (Kcl) (06/28/17 13:30) Potassium Chlor 20 Meq Premix (Kcl 20 Me (06/28/17 13:30) Iodixanol 320 Inj (Rad Ct) (Visipaque 32 (06/28/17 11:00) Admit Order (Ed Use Only) (06/28/17 14:49) Labs Laboratory Tests Test 06/28/17 11:40 06/28/17 12:00 06/28/17 12:05 Urine Color YELLOW Urine Turbidity CLOUDY Urine pH 6.0 Urine Specific [place] 1.016 Urine Protein 100 mg/dL Urine Glucose (UA) NEG mg/dL Urine Ketones NEG mg/dL Urine Occult Blood MOD Urine Nitrite POS Urine Bilirubin NEG Urine Urobilinogen LESS THAN 2.0 MG/DL Urine Leukocyte Esterase LARGE Urine RBC 5 /hpf Urine WBC /hpf Urine Squamous Epithelial Cells 14 /hpf Urine Bacteria FEW /hpf Microscopic Urinalysis Comment CATH-CULTURE IND White Blood Count 20.5 TH/MM3 Red Blood Count 3.83 MIL/MM3 Hemoglobin 11.4 GM/DL Hematocrit 33.3 % Mean Corpuscular Volume 86.7 FL Mean Corpuscular Hemoglobin 29.6 PG Mean Corpuscular Hemoglobin Concent 34.1 % Red Cell Distribution Width 14.5 % Platelet Count 306 TH/MM3 Mean Platelet Volume 9.3 FL Neutrophils (%) (Auto) 87.6 % Lymphocytes (%) (Auto) 5.4 % Monocytes (%) (Auto) 6.4 % Eosinophils (%) (Auto) 0.3 % Basophils (%) (Auto) 0.3 % Neutrophils # (Auto) 17.9 TH/MM3 Lymphocytes # (Auto) 1.1 TH/MM3 Monocytes # (Auto) 1.3 TH/MM3 Eosinophils # (Auto) 0.1 TH/MM3 Basophils # (Auto) 0.1 TH/MM3 CBC Comment DIFF FINAL Differential Comment Prothrombin Time 10.3 SEC Prothromb Time International Ratio 1.0 RATIO Activated Partial Thromboplast Time 37.1 SEC Blood Urea Nitrogen 23 MG/DL Creatinine 1.62 MG/DL Random Glucose 132 MG/DL Total Protein 7.5 GM/DL Albumin 2.3 GM/DL Calcium Level 9.1 MG/DL Magnesium Level 1.5 MG/DL Alkaline Phosphatase 121 U/L Aspartate Amino Transf (AST/SGOT) 19 U/L Alanine Aminotransferase (ALT/SGPT) 19 U/L Total Bilirubin 0.4 MG/DL Sodium Level 135 MEQ/L Potassium Level 2.3 MEQ/L Chloride Level 100 MEQ/L Carbon Dioxide Level 20.8 MEQ/L Anion Gap 14 MEQ/L Estimat Glomerular Filtration Rate 35 ML/MIN Total Creatine Kinase 89 U/L Troponin I LESS THAN 0.02 NG/ML Lipase 58 U/L Lactic Acid Level 1.0 mmol/L [facility] Medical Decision Making Medical Screen Exam Complete: Yes Emergency Medical Condition: Yes Medical Record Reviewed: Yes Interpretation(s) chest x-ray - CONCLUSION: 1. Subtle increased right upper lung zone parenchymal opacity may reflect developing airspace disease. Consider formal PA and lateral views of the chest for better evaluation. Chest x-ray PA and lateral - CONCLUSION: Acute air space disease right lung CT abdomen/pelvis - CONCLUSION: Right kidney has a mildly lobular configuration and is smaller in size as compared to the left consistent with scarring. Slight perinephric stranding on the left is nonspecific however pyelonephritis should be excluded. Differential Diagnosis UTI versus pyelonephritis versus cellulitis versus abdominal wall abscess versus pancreatitis versus cholecystitis versus appendicitis versus diverticulitis Narrative Course 42-year-old female presents to the emergency department for evaluation of fever , abdominal pain, drainage to the umbilicus for 2 days. EKG, CBC, CMP, lactic acid, magnesium, lipase, CK, troponin, PTT, PT/INR, UA, UPT, blood cultures 2, influenza are ordered and pending. Wound cultures taken from the umbilicus. Chest x-ray and CT abdomen/pelvis with IV contrast are ordered and pending. Patient is given normal saline 2 L IV bolus, morphine 4 mg IV, Reglan 10 mg IV, Tylenol 650 mg p.o. EKG shows sinus tachycardia, heart rate 111, diffuse T-wave changes. CBC shows leukocytosis 20.5, neutrophil percentage 87.6. CMP shows hypokalemia 2.3, BUN 23, creatinine 1.62. Lipase is 58. Magnesium is 1.5. CK is 89. Troponin is less than 0.02. Lactic acid is 1.0. Coags show no acute abnormality. UA shows moderate occult blood, positive nitrate, large leukocyte Estrace, innumerable WBC. UPT is negative. Influenza is negative. Chest x-ray shows Subtle increased right upper lung zone parenchymal opacity may reflect developing airspace disease. Consider formal PA and lateral views of the chest for better evaluation. Chest x-ray PA and lateral shows acute air space disease right lung. CT abdomen/pelvis shows right kidney has a mildly lobular configuration and is smaller in size as compared to the left consistent with scarring. Slight perinephric stranding on the left is nonspecific however pyelonephritis should be excluded. Patient was started on vancomycin 1 g IV, Zosyn 3.375 g IV to cover pneumonia as well as cellulitis to the umbilicus. Patient is given potassium 30 mEq p.o. , potassium 20 mEq IV. Hospitalist is arcadiod for admission. Dr. Rasmussen accepted admission. Sepsis Criteria SIRS Criteria (2 or more): Heart rate over 90, WBC > 66833, < 4000 or > 10% bands Sepsis Criteria (SIRS+source): Infect source susp/known Diagnosis Primary Impression: Pneumonia Qualified Codes: J18.9 - Pneumonia, unspecified organism Additional Impressions: Cellulitis of umbilicus Hypokalemia Pyelonephritis Sepsis Qualified Codes: A41.9 - Sepsis, unspecified organism Admitting Information Admitting Physician Requests: Admit Olamide Poole June 28, 2017 11:41
[2017-06-28] MEDS ORDERED: METOCLOPRAMIDE HCL 10 MG/2 ML VIAL IV PUSH ONE (11:45)
[2017-06-28] MEDS ORDERED: MORPHINE SULFATE 4 MG/ML INJ IV PUSH ONE ×2 (11:45→13:30)
[2017-06-28] MEDS ORDERED: SODIUM CHLOR 0.9% 1000 ML INJ 1,000 ML IV ONE ×2 (11:45)
[2017-06-28] MEDS ORDERED: ACETAMINOPHEN 325 MG TAB PO ONE (11:45)
--- NOTE | 2017-06-28 11:54 | RADRPT ---
EXAM DATE/TIME: 06/28/2017 11:37 [facility] COMPARISON: CT ABDOMEN & PELVIS W/O CONTRAST, January 14, 2017, 8:41. INDICATIONS : Chest pain, fever, shortness of breath, and abdominal pain. MEDICAL HISTORY : Kidney stones. UTI. SURGICAL HISTORY : section.Tubal ligation. Lithotripsy. Right kidney stents. Endocrine surgery. ENCOUNTER: Initial ACUITY: 3 days PAIN SCORE: 10/10 LOCATION: Bilateral chest FINDINGS: Subtle increased opacity in the right upper lung zone. Cardiomediastinal contours are within normal l imits. Bony thorax is intact. CONCLUSION: 1. Subtle increased right upper lung zone parenchymal opacity may reflect developing airspace disease . Consider formal PA and lateral views of the chest for better evaluation. Grabiel Anderson MD on June 28, 2017 at 11:49 Board Certified Radiologist. This report was verified electronically.
--- NOTE | 2017-06-28 12:35 | RADRPT ---
EXAM DATE/TIME: 06/28/2017 12:21 [facility] COMPARISON: No previous studies available for comparison. INDICATIONS : Abdomen pains entire abdomen. MEDICAL HISTORY : None. SURGICAL HISTORY : Tubal, Csection ENCOUNTER: Initial ACUITY: 4 - 6 days PAIN SCORE: 10/10 LOCATION: Bilateral abdomen FINDINGS: Increased opacity is seen throughout the right lung characteristic of acute air space disease. Left lung is clear. Heart is normal in size. CONCLUSION: Acute air space disease right lung Tyler Rodriguez MD on June 28, 2017 at 12:32 Board Certified Radiologist. This report was verified electronically.
[2017-06-28] MEDS ORDERED: VANCOMYCIN INJ 1,000 MG in SODIUM CHLOR 0.9% 250 ML INJ 250 ML IV ONE (12:45)
[2017-06-28] MEDS ORDERED: PIPERACIL-TAZO 3.375 GM PREMIX 50 ML IV ONE (12:45)
[2017-06-28 12:51] LABS: AUTOMATED NEUTROPHIL # 17.9 TH/MM3 (1.8-7.7); BASOPHIL # 0.1 TH/MM3 (0-0.2); BASOPHIL % 0.3 % (0.0-2.0); EOSINOPHIL # 0.1 TH/MM3 (0-0.4); EOSINOPHIL % 0.3 % (0.0-4.0); HEMATOCRIT 33.3 % (35.0-46.0); HEMOGLOBIN 11.4 GM/DL (11.6-15.3); LYMPH % 5.4 % (9.0-44.0); LYMPHOCYTE # 1.1 TH/MM3 (1.0-4.8); MEAN CELL VOLUME 86.7 FL (80.0-100.0); MEAN CORPUSCULAR HEMOGLOBIN 29.6 PG (27.0-34.0); MEAN CORPUSCULAR HGB CONC 34.1 % (32.0-36.0); MEAN PLATELET VOLUME 9.3 FL (7.0-11.0); MONO % 6.4 % (0.0-8.0); MONOCYTE # 1.3 TH/MM3 (0-0.9); NEUT % 87.6 % (16.0-70.0); PLATELET COUNT 306 TH/MM3 (150-450); RED BLOOD COUNT 3.83 MIL/MM3 (4.00-5.30); RED CELL DISTRIBUTION WIDTH 14.5 % (11.6-17.2); WHITE BLOOD COUNT 20.5 TH/MM3 (4.0-11.0)
[2017-06-28 12:55] LABS: BACTERIA, URINE FEW /hpf; BILIRUBIN, URINE NEG (NEG); BLOOD, URINE MOD (NEG); GLUCOSE,URINE NEG (NEG); KETONE, URINE NEG (NEG); NITRITE,URINE POS (NEG); SQUAMOUS EPITHELIAL CELL URINE 14 /hpf (0-5); URINE COLOR YELLOW (YELLW/STRAW); URINE LEUKOCYTE ESTERASE LARGE (NEG)
[2017-06-28 13:01] LABS: PROTHROMBIN TIME - PATIENT 10.3 SEC (9.8-11.6)
[2017-06-28 13:23] LABS: ALBUMIN 2.3 GM/DL (3.4-5.0); ALKALINE PHOSPHATASE 121 U/L (45-117); ALT (GPT) 19 U/L (10-53); AST (GOT) 19 U/L (15-37); BICARBONATE 20.8 MEQ/L (21.0-32.0); BLOOD UREA NITROGEN 23 MG/DL (7-18); CALCIUM 9.1 MG/DL (8.5-10.1); CHLORIDE 100 MEQ/L (98-107); CREATININE 1.62 MG/DL (0.50-1.00); GLOMERULAR FILTRATION RATE 35 ML/MIN (>89); GLUCOSE,RANDOM 132 MG/DL (74-106); MAGNESIUM 1.5 MG/DL (1.5-2.5); SODIUM (NA) 135 MEQ/L (136-145); TOTAL BILIRUBIN ADULT 0.4 MG/DL (0.2-1.0); TOTAL PROTEIN 7.5 GM/DL (6.4-8.2); TROPONIN I LESS THAN 0.02 NG/ML (0.02-0.05)
[2017-06-28] MEDS ORDERED: POTASSIUM CHLORIDE 20 MEQ CONTROLLED RELEASE TAB PO ONE (13:30)
[2017-06-28] MEDS ORDERED: POTASSIUM CHLOR 20 MEQ PREMIX 100 ML IV ONE (13:30)
--- NOTE | 2017-06-28 14:20 | RADRPT ---
EXAM DATE/TIME: 06/28/2017 13:57 [facility] COMPARISON: CT ABDOMEN & PELVIS W/O CONTRAST, January 14, 2017, 8:41. INDICATIONS : Patient with fever, diffuse abdominal pain and frequent UTIs. IV CONTRAST: 50 cc Visipaque (iodixanol) IV ORAL CONTRAST: No oral contrast ingested. RADIATION DOSE: 42.84 CTDIvol (mGy) ; Patient body habitus MEDICAL HISTORY : Hypertension. Renal calculi. SURGICAL HISTORY : Tubal ligation. lithrotripsy ENCOUNTER: Initial ACUITY: 1 day PAIN SCALE: 9/10 LOCATION: abdomen TECHNIQUE: Volumetric scanning of the abdomen and pelvis was performed. Using automated exposure control and ad justment of the mA and/or kV according to patient size, radiation dose was kept as low as reasonably achievable to obtain optimal diagnostic quality images. DICOM format image data is available electro nically for review and comparison. FINDINGS: Spleen, pancreas, adrenals are unremarkable. Mild hepatomegaly and hepatic steatosis. Gallbladder unr emarkable. Fat containing umbilical hernia. Urinary bladder, uterus and ovaries are unremarkable. No evidence of bowel obstruction. There are no renal calculi. The left kidney is enlarged as compared to the right with volume loss of the right kidney noted. There is a suggestion of mild perinephric stra nding on the left. There are degenerative changes of the spine. Patchy bilateral pulmonary infiltrate s are seen within the lungs on image #1. CONCLUSION: Right kidney has a mildly lobular configuration and is smaller in size as compared to the left consis tent with scarring. Slight perinephric stranding on the left is nonspecific however pyelonephritis sh ould be excluded. Favian Oleary MD on June 28, 2017 at 14:14 Board Certified Radiologist. This report was verified electronically.
[2017-06-28] MEDS ORDERED: AMLO5TAB2 PO (15:11)
[2017-06-28] MEDS ORDERED: FENO48TA PO (15:11)
[2017-06-28] MEDS ORDERED: HYDR25TA5 PO (15:11)
[2017-06-28] MEDS ORDERED: cloNIDine HCL 0.1 MG TAB PO PRN (15:30)
[2017-06-28] MEDS ORDERED: ACETAMINOPHEN 325 MG TAB PO PRN (15:30)
[2017-06-28] MEDS ORDERED: LACTULOSE SYRUP 20 GM/30 ML CUP PO PRN (15:30)
[2017-06-28] MEDS ORDERED: MAGNESIUM HYDROXIDE SUSP 30 ML CUP PO PRN (15:30)
[2017-06-28] MEDS ORDERED: SENNOSIDES 8.6 MG TAB PO PRN (15:30)
[2017-06-28] MEDS ORDERED: NALOXONE HCL 0.4 MG/ML AMP IV PUSH PRN ×2 (15:30)
[2017-06-28] MEDS ORDERED: Vancomycin Consult Pharmacy 1 EA OTHER SCH (15:30)
[2017-06-28] MEDS ORDERED: BISACODYL 10 MG SUPP RECTAL PRN (15:30)
[2017-06-28] MEDS ORDERED: SODIUM CHLORIDE 0.9% FLUSH 10 ML FLUSH IV FLUSH PRN (15:30)
[2017-06-28] MEDS: NICOTINE 7 MG/24 HR PATCH T-DERMAL SCH (15:30)
[2017-06-28] MEDS ORDERED: ONDANSETRON HCL 4 MG/2 ML VIAL IVP PRN (15:30)
--- NOTE | 2017-06-28 15:47 | HHI.HP ---
[facility] Service Family Medicine Primary Care Physician Anatoliy Paris MD Admission Diagnosis Pneumonia, pyelonephritis, hypokalemia, sepsis, cellulitis Diagnoses: International Travel<30 Days: No Contact w/Intl Traveler<30days: No Known Affected Area: No History of Present Illness 42-year-old female with history of HTN, osteoarthritis, sciatica, multiple kidney stones with over 13 lithotripsies, presents to the ED with fevers and abdominal pain. Patient reports that she has had 2 day history of severe stomach pain and fevers. She reports that her fever started 2 days ago, highest recorded at home orally was 103.2. She endorses chills. She states that around this time she started having belly pain around umbilical region and noticed that her belly button was erythematous and draining white pus. She denies history of umbilical hernia. Reports and tubal ligation in 2005. She also endorses right sided CVA tenderness and dysuria for the last couple days. Reports history of UTIs. Most recent UTI was in April and she was hospitalized at [facility] in [facility]. Reports that they treated her with Bactrim. She endorses one episode of nonbloody vomiting. She also endorses dry cough. Denies vaginal discharge, chest pain, shortness of breath, vaginal discharge, and diarrhea. She reports that she is planning to get gastric bypass surgery in the future. She states that she has lost 40 pounds in the past 6 months. She states that ever since she stopped drinking Mountain Dew, she has had severe kidney infections. She reports that she drank 12 cans of Mountain Dew per day for the past couple of years. (Linda Rasmussen MD R1) Review of Systems Constitutional: COMPLAINS OF: Fever, Weight loss (Intentional weight loss), Chills Eyes: DENIES: Blurred vision Ears, nose, mouth, throat: DENIES: Running Nose Respiratory: COMPLAINS OF: Cough, DENIES: Sputum production Cardiovascular: COMPLAINS OF: Dyspnea on Exertion, DENIES: Chest pain Gastrointestinal: COMPLAINS OF: Abdominal pain, Nausea, Vomiting, DENIES: Bloody stools, Diarrhea Genitourinary: COMPLAINS OF: Dysuria Integumentary: DENIES: Rash Neurologic: DENIES: Headache Psychiatric: DENIES: Confusion (Linda Rasmussen MD R1) Past Family Social History Past Medical History Osteoarthritis of the right knee Hypertension Sciatica History of kidney stones and UTIs, over 13 lithotripsies and hx of stent placed and removed in R kidney Past Surgical History Stent placed and removed in right kidney in 2005, tubal ligation 2006 Right arm surgery, plates and screws placed Reported Medications Reported Meds & Active Scripts Active Amlodipine (Amlodipine Besylate) 5 Mg Tab 5 Mg PO DAILY Hydrochlorothiazide 25 Mg Tab 25 Mg PO DAILY Fenofibrate 48 Mg Tab 48 Mg PO DAILY Amlodipine (Amlodipine Besylate) 5 Mg Tab 5 Mg PO DAILY Reported Hydrocodone-Acetaminophen 5-300 Mg Tab 1 Tab PO Q6H PRN (Linda Rasmussen MD R1) Allergies: Coded Allergies: ketorolac (Verified Allergy, Intermediate, Swelling, 06/28/17) codeine (Unverified Allergy, Unknown, VOMITTING, 06/28/17) tramadol (Unverified Adverse Reaction, Intermediate, gi upset, 06/28/17) Family History Mom, CHF, at 69. History of colon cancer at 42. DM Social History Patient is currently unemployed. She lives in [place] with her 27-year- old daughter. Patient smokes half pack per day, she used to smoke 1.5 packs per day. Patient is interested in quitting. Patient denies alcohol use and illicit drug use. (Linda Rasmussen MD R1) Physical Exam Vital Signs Vital Signs Date Time Temp Pulse Resp B/P (MAP) Pulse Ox O2 Delivery O2 Flow Rate FiO2 06/28/17 15:27 99.1 97 21 139/81 (100) 97 Room Air 06/28/17 13:15 106 142/98 (113) 06/28/17 11:09 100.8 126 26 143/67 (92) 98 Physical Exam GENERAL: Obese patient, lying in bed, in no acute distress SKIN: Erythematous and purulent drainage noted around the umbilicus. No fluctuance noted. HEAD: Atraumatic. Normocephalic. No temporal or scalp tenderness. EYES: Pupils equal round and reactive. Extraocular motions intact. No scleral icterus. No injection or drainage. ENT: Nose without bleeding, purulent drainage or septal hematoma. Throat without erythema, tonsillar hypertrophy or exudate. Uvula midline. Airway patent. NECK: Trachea midline. No JVD or lymphadenopathy. Supple, nontender, no meningeal signs. CARDIOVASCULAR: Regular rate and rhythm without murmurs, gallops, or rubs. RESPIRATORY: Decreased breath sounds on the right, mild crackles, no wheezing GASTROINTESTINAL: Right CVA tenderness, see skin exam above MUSCULOSKELETAL: Nonpitting edema in lower extremities NEUROLOGICAL: Awake and alert. Laboratory Laboratory Tests Test 06/28/17 11:40 06/28/17 12:00 06/28/17 12:05 Urine Color YELLOW Urine Turbidity CLOUDY Urine pH 6.0 Urine Specific [place] 1.016 Urine Protein 100 Urine Glucose (UA) NEG Urine Ketones NEG Urine Occult Blood MOD Urine Nitrite POS Urine Bilirubin NEG Urine Urobilinogen LESS THAN 2.0 Urine Leukocyte Esterase LARGE Urine RBC 5 Urine WBC Urine Squamous Epithelial Cells 14 Urine Bacteria FEW Microscopic Urinalysis Comment CATH-CULTURE IND White Blood Count 20.5 Red Blood Count 3.83 Hemoglobin 11.4 Hematocrit 33.3 Mean Corpuscular Volume 86.7 Mean Corpuscular Hemoglobin 29.6 Mean Corpuscular Hemoglobin Concent 34.1 Red Cell Distribution Width 14.5 Platelet Count 306 Mean Platelet Volume 9.3 Neutrophils (%) (Auto) 87.6 Lymphocytes (%) (Auto) 5.4 Monocytes (%) (Auto) 6.4 Eosinophils (%) (Auto) 0.3 Basophils (%) (Auto) 0.3 Neutrophils # (Auto) 17.9 Lymphocytes # (Auto) 1.1 Monocytes # (Auto) 1.3 Eosinophils # (Auto) 0.1 Basophils # (Auto) 0.1 CBC Comment DIFF FINAL Differential Comment Prothrombin Time 10.3 Prothromb Time International Ratio 1.0 Activated Partial Thromboplast Time 37.1 Blood Urea Nitrogen 23 Creatinine 1.62 Random Glucose 132 Total Protein 7.5 Albumin 2.3 Calcium Level 9.1 Magnesium Level 1.5 Alkaline Phosphatase 121 Aspartate Amino Transf (AST/SGOT) 19 Alanine Aminotransferase (ALT/SGPT) 19 Total Bilirubin 0.4 Sodium Level 135 Potassium Level 2.3 Chloride Level 100 Carbon Dioxide Level 20.8 Anion Gap 14 Estimat Glomerular Filtration Rate 35 Total Creatine Kinase 89 Troponin I LESS THAN 0.02 Lipase 58 Lactic Acid Level 1.0 Date/Time Source Procedure Growth Status 06/28/17 12:30 Blood Peripheral Aerobic Blood Culture Pending Received 06/28/17 12:30 Blood Peripheral Anaerobic Blood Culture Pending Received 06/28/17 12:35 Nasal Aspirate Influenza Types A,B Antigen (ARNOLD) - Final NEGATIVE FOR FLU A AND B ANTIGEN.... Complete 06/28/17 11:40 Urine Catheterized Urine Urine Culture Pending Received 06/28/17 11:40 Wound Abdomen Gram Stain - Final Resulted 06/28/17 11:40 Wound Abdomen Wound Culture Pending Resulted (Linda Rasmussen MD R1) Result Diagram: 06/28/17 1200 06/28/17 1200 Septic Shock Reassessment Septic shock perfusion: reassessment completed (Linda Rasmussen MD R1) Caprini VTE Risk Assessment Caprini VTE Risk Assessment: Mod/High Risk (score >= 2) Caprini Risk Assessment Model Point Value = 1 Point Value = 2 Point Value = 3 Point Value = 5 Age 41-60 Minor surgery BMI > 25 kg/m2 Swollen legs Varicose veins or History of unexplained or recurrent spontaneous Oral contraceptives or hormone replacement Sepsis (< 1 month) Serious lung disease, including pneumonia (< 1 month) Abnormal pulmonary function Acute myocardial infarction Congestive heart failure (< 1 month) History of inflammatory bowel disease Medical patient at bed rest Age 61-74 Arthroscopic surgery Major open surgery (> 45 min) Laparoscopic surgery (> 45 min) Malignancy Confined to bed (> 72 hours) Immobilizing plaster cast Central venous access Age >= 75 History of VTE Family history of VTE Factor V Leiden Prothrombin [id number] Lupus anticoagulant Anticardiolipin antibodies Elevated serum homocysteine Heparin-induced thrombocytopenia Other congenital or acquired thrombophilia Stroke (< 1 month) Elective arthroplasty Hip, pelvis, or leg fracture Acute spinal cord injury (< 1 month) Prophylaxis Regimen Total Risk Factor Score Risk Level Prophylaxis Regimen 0-1 Low Early ambulation 2 Moderate Order ONE of the following: *Sequential Compression Device (SCD) *Heparin 5000 units SQ BID 3-4 Higher Order ONE of the following medications: *Heparin 5000 units SQ TID *Enoxaparin/Lovenox 40 mg SQ daily (WT < 150 kg, CrCl > 30 mL/min) *Enoxaparin/Lovenox 30 mg SQ daily (WT < 150 kg, CrCl > 10-29 mL/min) *Enoxaparin/Lovenox 30 mg SQ BID (WT < 150 kg, CrCl > 30 mL/min) AND/OR *Sequential Compression Device (SCD) 5 or more Highest Order ONE of the following medications: *Heparin 5000 units SQ TID (Preferred with Epidurals) *Enoxaparin/Lovenox 40 mg SQ daily (WT < 150 kg, CrCl > 30 mL/min) *Enoxaparin/Lovenox 30 mg SQ daily (WT < 150 kg, CrCl > 10-29 mL/min) *Enoxaparin/Lovenox 30 mg SQ BID (WT < 150 kg, CrCl > 30 mL/min) AND *Sequential Compression Device (SCD) (Linda Rasmussen MD R1) Assessment and Plan Assessment and Plan 42-year-old female with history of HTN, osteoarthritis, sciatica, multiple kidney stones with over 13 lithotripsies, presents to the ED with fevers and abdominal pain. Patient admitted for severe sepsis and workup. Code Status Full code Discussed Condition With Dr. Hernández and Dr. Ayala (Linda Rasmussen MD R1) Problem List: (1) Severe sepsis ICD Codes: A41.9 - Sepsis, unspecified organism; R65.20 - Severe sepsis without septic shock Plan: Patient meets severe sepsis criteria due to fever of 100.8, tachycardia at 126 and WBC of 20.5 with known source of infection (pyelonephritis, pneumonia , cellulitis of umbilicus) and organ damage (creatinine elevated at 1.62). Labs and Imaging: WBC elevated at 20.5 with left shift Hypokalemic at 2.3 BUN of 23, creatinine of 1.62 Lactic acid of 1.0 Blood cultures pending Chest x-ray demonstrates increased right upper lung zone parenchymal opacity may reflect developing airspace disease Abdominal CT demonstrates right kidney with a mildly low with a lobular configuration and is smaller in size as compared to the left consistent with scarring. Slight perinephric stranding on the left. Treatment: Patient received 1 dose of vancomycin and Zosyn in the ED Continue with vancomycin, consult pharmacy for dosing Continue Zosyn 3.375 g IV every 6h N.p.o. Normal saline 250mls/hr, maintenance rate (2) Pyelonephritis ICD Codes: N12 - Tubulo-interstitial nephritis, not specified as acute or chronic Status: Acute Plan: Patient has history of multiple kidney stones and history of UTIs UA positive for large leukocyte esterases, positive nitrates, bacteria. CT demonstrate slight perinephric stranding on the left. Urine culture pending, will wait for sensitivities and narrow antibiotics as needed Continue antibiotics above Urology consulted, appreciate recommendations (3) Pneumonia ICD Codes: J18.9 - Pneumonia, unspecified organism Status: Acute Plan: Chest x-ray positive for right upper lung zone parenchymal opacity Patient not requiring oxygen at this time Continue antibiotics as above Start prednisone 40 mg p.o. daily Duo nebs every 6h (4) Cellulitis of umbilicus ICD Codes: L03.316 - Cellulitis of umbilicus Status: Acute Plan: Erythematous and purulent drainage of the umbilicus Culture pending General surgery consulted for possible I&D, appreciate recommendations (5) HTN (hypertension) ICD Codes: I10 - Essential (primary) hypertension Plan: Continue home amlodipine 5 mg p.o. daily Clonidine 0.1 mg p.o. every 6 hours as needed for blood pressure greater than 180/100 (6) Hypokalemia ICD Codes: E87.6 - Hypokalemia Status: Acute Plan: Potassium of 2.3 on admission once in the ED Patient received 40meq KCL PO in the ED Will continue to trend K+ with BMP (7) Smoking ICD Codes: F17.200 - Nicotine dependence, unspecified, uncomplicated Plan: Nicotine patch 7mg q24hr (8) Nutrition, metabolism, and development symptoms ICD Codes: R63.8 - Other symptoms and signs concerning food and fluid intake Plan: Diet: N.p.o. except meds Fluids: 250 mls/hr Electrolytes:replace as needed Vitals every 4, monitor I's and O's DVT ppx: SCDs PT consulted (Linda Rasmussen MD R1) Problem List: (1) Severe sepsis ICD Codes: A41.9 - Sepsis, unspecified organism; R65.20 - Severe sepsis without septic shock Plan: Patient meets severe sepsis criteria due to fever of 100.8, tachycardia at 126 and WBC of 20.5 with known source of infection (pyelonephritis, pneumonia , cellulitis of umbilicus) and organ damage (creatinine elevated at 1.62). Labs and Imaging: WBC elevated at 20.5 with left shift Hypokalemic at 2.3 BUN of 23, creatinine of 1.62 Lactic acid of 1.0 Blood cultures pending Chest x-ray demonstrates increased right upper lung zone parenchymal opacity may reflect developing airspace disease Abdominal CT demonstrates right kidney with a mildly low with a lobular configuration and is smaller in size as compared to the left consistent with scarring. Slight perinephric stranding on the left. Treatment: Patient received 1 dose of vancomycin and Zosyn in the ED Continue with vancomycin, consult pharmacy for dosing Continue Zosyn 3.375 g IV every 6h N.p.o. Normal saline 250mls/hr, maintenance rate (2) Pyelonephritis ICD Codes: N12 - Tubulo-interstitial nephritis, not specified as acute or chronic Status: Acute Plan: Patient has history of multiple kidney stones and history of UTIs UA positive for large leukocyte esterases, positive nitrates, bacteria. CT demonstrate slight perinephric stranding on the left. Urine culture pending, will wait for sensitivities and narrow antibiotics as needed Continue antibiotics above Urology consulted, appreciate recommendations (3) Pneumonia ICD Codes: J18.9 - Pneumonia, unspecified organism Status: Acute Plan: Chest x-ray positive for right upper lung zone parenchymal opacity Patient not requiring oxygen at this time Continue antibiotics as above Start prednisone 40 mg p.o. daily Duo nebs every 6h (4) Cellulitis of umbilicus ICD Codes: L03.316 - Cellulitis of umbilicus Status: Acute Plan: Erythematous and purulent drainage of the umbilicus Culture pending General surgery consulted for possible I&D, appreciate recommendations (5) HTN (hypertension) ICD Codes: I10 - Essential (primary) hypertension Plan: Continue home amlodipine 5 mg p.o. daily Clonidine 0.1 mg p.o. every 6 hours as needed for blood pressure greater than 180/100 (6) Hypokalemia ICD Codes: E87.6 - Hypokalemia Status: Acute Plan: Potassium of 2.3 on admission once in the ED Patient received 40meq KCL PO in the ED Will continue to trend K+ with BMP (7) Smoking ICD Codes: F17.200 - Nicotine dependence, unspecified, uncomplicated Plan: Nicotine patch 7mg q24hr (8) Nutrition, metabolism, and development symptoms ICD Codes: R63.8 - Other symptoms and signs concerning food and fluid intake Plan: Diet: N.p.o. except meds Fluids: 250 mls/hr Electrolytes:replace as needed Vitals every 4, monitor I's and O's DVT ppx: SCDs PT consulted See the residents documentation for details. I saw and evaluated the patient regarding the mazariegos portions of this evaluation and agree with the residents findings and plans as written. Parts of this note were created using [email or web address] voice recognition software program. While efforts were made to correct any mistakes made by this software, some mistakes, errors, and omissions may remain in the final note that were not caught when the note was originally created. Plan of care was discussed and agreed upon with the patient as specifically documented in the above note. An opportunity to ask questions with explanation was provided. Patient voiced understanding on all information reviewed and discussed. (Shiv Hernández MD) Physician Certification 2 Midnight Certification Type: Admission for Inpatient Services Order for Inpatient Services The services are ordered in accordance with Medicare regulations or non- Medicare payer requirements, as applicable. In the case of services not specified as inpatient-only, they are appropriately provided as inpatient services in accordance with the 2-midnight benchmark. Estimated LOS (days): 2 2 days is the estimated time the patient will need to remain in the hospital, assuming treatment plan goals are met and no additional complications. Post-Hospital Plan: Home (Linda Rasmussen MD R1) Problem Qualifiers (1) Pneumonia: Qualified Codes: J18.9 - Pneumonia, unspecified organism Linda Rasmussen MD R1 June 28, 2017 15:47 Shiv Hernández MD June 29, 2017 12:50
--- NOTE | 2017-06-28 16:44 | PD.CONS ---
HPI Service Urology Consult Requested By Dr Rasmussne Reason for Consult Pyelonephritis Primary Care Physician Anatoliy Paris MD Diagnosis: History of Present Illness 42 y.o F with h/o kidney stones, last intervention had 4y/a, she had litho with stent placement. Admits having more then 10stones at that time. She came to ER today with fever, chills frequency dysuria and right > left abd pain. Her white count is 20.5 and fever 100.8. Her urine test is suspicious for infection and UC was sent. possibly has pneumonia based on CXR. CT scan of abdomen is c/w smaller right kidney and possible pyelo on a left. no stones seen. She is on IV antbx already. Urology consulted. Review of Systems Except as stated in HPI: all other systems reviewed are Neg Past Family Social History Past Medical History HTN GERD Back pain Kidney stones Past Surgical History Kidney stones litho Allergies: Coded Allergies: ketorolac (Verified Allergy, Intermediate, Swelling, 06/28/17) codeine (Unverified Allergy, Unknown, VOMITTING, 06/28/17) tramadol (Unverified Adverse Reaction, Intermediate, gi upset, 06/28/17) Family History n/a Social History n/a Physical Exam Vital Signs Date Time Temp Pulse Resp B/P (MAP) Pulse Ox O2 Delivery O2 Flow Rate FiO2 06/28/17 15:27 99.1 97 21 139/81 (100) 97 Room Air 06/28/17 13:15 106 142/98 (113) 06/28/17 11:09 100.8 126 26 143/67 (92) 98 Physical Exam GENERAL: This is a well-nourished, well-developed patient, in no apparent distress. Obese HEAD: Atraumatic. Normocephalic. CARDIOVASCULAR: Regular rate and rhythm without murmurs, gallops, or rubs. RESPIRATORY: Clear to auscultation. Breath sounds equal bilaterally. No wheezes , rales, or rhonchi. GASTROINTESTINAL: Abdomen soft, non-tender, nondistended. GENITOURINARY:Bladder not distended, no CVAT MUSCULOSKELETAL: Extremities without clubbing, cyanosis, or edema NEUROLOGICAL: Awake and alert. Lab results reviewed: Yes Laboratory Tests Test 06/28/17 11:40 06/28/17 12:00 06/28/17 12:05 Urine Color YELLOW Urine Turbidity CLOUDY Urine pH 6.0 Urine Specific [place] 1.016 Urine Protein 100 Urine Glucose (UA) NEG Urine Ketones NEG Urine Occult Blood MOD Urine Nitrite POS Urine Bilirubin NEG Urine Urobilinogen LESS THAN 2.0 Urine Leukocyte Esterase LARGE Urine RBC 5 Urine WBC Urine Squamous Epithelial Cells 14 Urine Bacteria FEW Microscopic Urinalysis Comment CATH-CULTURE IND White Blood Count 20.5 Red Blood Count 3.83 Hemoglobin 11.4 Hematocrit 33.3 Mean Corpuscular Volume 86.7 Mean Corpuscular Hemoglobin 29.6 Mean Corpuscular Hemoglobin Concent 34.1 Red Cell Distribution Width 14.5 Platelet Count 306 Mean Platelet Volume 9.3 Neutrophils (%) (Auto) 87.6 Lymphocytes (%) (Auto) 5.4 Monocytes (%) (Auto) 6.4 Eosinophils (%) (Auto) 0.3 Basophils (%) (Auto) 0.3 Neutrophils # (Auto) 17.9 Lymphocytes # (Auto) 1.1 Monocytes # (Auto) 1.3 Eosinophils # (Auto) 0.1 Basophils # (Auto) 0.1 CBC Comment DIFF FINAL Differential Comment Prothrombin Time 10.3 Prothromb Time International Ratio 1.0 Activated Partial Thromboplast Time 37.1 Blood Urea Nitrogen 23 Creatinine 1.62 Random Glucose 132 Total Protein 7.5 Albumin 2.3 Calcium Level 9.1 Magnesium Level 1.5 Alkaline Phosphatase 121 Aspartate Amino Transf (AST/SGOT) 19 Alanine Aminotransferase (ALT/SGPT) 19 Total Bilirubin 0.4 Sodium Level 135 Potassium Level 2.3 Chloride Level 100 Carbon Dioxide Level 20.8 Anion Gap 14 Estimat Glomerular Filtration Rate 35 Total Creatine Kinase 89 Troponin I LESS THAN 0.02 Lipase 58 Lactic Acid Level 1.0 Date/Time Source Procedure Growth Status 06/28/17 12:30 Blood Peripheral Aerobic Blood Culture Pending Received 06/28/17 12:30 Blood Peripheral Anaerobic Blood Culture Pending Received 06/28/17 12:35 Nasal Aspirate Influenza Types A,B Antigen (ARNOLD) - Final NEGATIVE FOR FLU A AND B ANTIGEN.... Complete 06/28/17 11:40 Urine Catheterized Urine Urine Culture Pending Received 06/28/17 11:40 Wound Abdomen Gram Stain - Final Resulted 06/28/17 11:40 Wound Abdomen Wound Culture Pending Resulted Result Diagram: 06/28/17 1200 06/28/17 1200 Personally reviewed images: Yes Imaging Last Impressions Chest X-Ray 06/28/17 1131 Signed Impressions: Service Date/Time: Wednesday, June 28, 2017 11:37 - CONCLUSION: 1. Subtle increased right upper lung zone parenchymal opacity may reflect developing airspace disease. Consider formal PA and lateral views of the chest for better evaluation. Grabiel Anderson MD Abdomen/Pelvis CT 06/28/17 1131 Signed Impressions: Service Date/Time: Wednesday, June 28, 2017 13:57 - CONCLUSION: Right kidney has a mildly lobular configuration and is smaller in size as compared to the left consistent with scarring. Slight perinephric stranding on the left is nonspecific however pyelonephritis should be excluded. Favian Oleary MD Assessment and Plan Assessment and Plan 42y.o F with UTI and possible pyelonephritis. - No acute intervention needed - Continue care as per primary team with IV fluids and IV antbx - Follow up on cultures and adjust antbx according to C&S if necessary. - Urolgy remains available as needed. Discussed Condition With Dr Lalito MOTTA attending who agrees with this plan Wu Davis June 28, 2017 16:44
[2017-06-28] MEDS: SODIUM CHLOR 0.9% 1000 ML INJ 1,000 ML IV SCH ×2 (17:00→19:49)
[2017-06-28] MEDS ORDERED: VANCOMYCIN INJ 2,000 MG in SODIUM CHLORID 0.9% 500 ML INJ 500 ML IV SCH (18:00)
[2017-06-28] MEDS: ACETAMINOPHEN/HYDROcodone 325 MG/7.5 MG TAB PO PRN ×2 (19:49→23:43)
[2017-06-28] MEDS: PIPERACIL-TAZO 3.375 GM PREMIX 50 ML IV SCH (19:49)
[2017-06-28] MEDS: DOCUSATE SODIUM 50 MG/SENNA 8.6 MG TAB PO SCH (19:49)
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
[2017-06-28] MEDS: RESP: ALBUTEROL 2.5 MG/IPRATROPIUM 0.5 MG NEB (SCH) INH (20:32)
[2017-06-28] MEDS: BACITRACIN TOP OINT 15 GM TUBE TOPICAL SCH (21:00)
[2017-06-28] MEDS: SODIUM CHLORIDE 0.9% FLUSH 10 ML FLUSH IV FLUSH SCH (21:00)
[2017-06-28 21:40] LABS: CHOLESTEROL/ HDL RATIO 22.38 RATIO; HDL CHOLESTEROL 8.4 MG/DL (40.0-60.0)
[2017-06-28 22:27] LABS: BICARBONATE 20.7 MEQ/L (21.0-32.0); CALCIUM 8.8 MG/DL (8.5-10.1); CREATININE 1.59 MG/DL (0.50-1.00)
[2017-06-28 22:32] LABS: HEMOGLOBIN A1C 6.7 % (4.3-6.0)
[2017-06-28] MEDS ORDERED: POTASSIUM CHLORIDE 25 MEQ EFFERVESCENT TAB PO ONE (23:00)
[2017-06-28] MEDS ORDERED: VANCOMYCIN INJ 1,000 MG in SODIUM CHLOR 0.9% 250 ML INJ 250 ML IV SCH (23:00)
[2017-06-28] MEDS: POTASSIUM CHLOR 20 MEQ PREMIX 100 ML IV SCH (23:13)
[2017-06-29] VITALS (13 sets, daily range): BP systolic 118–156; BP diastolic 58–99; PULSE 79–101; RESP 17–20; TEMP 97.5–98.3; O2SAT 93–98
[2017-06-29] MEDS: PIPERACIL-TAZO 3.375 GM PREMIX 50 ML IV SCH ×4 (00:50→20:26)
[2017-06-29] MEDS: SODIUM CHLOR 0.9% 1000 ML INJ 1,000 ML IV SCH ×3 (00:50→08:28)
[2017-06-29] MEDS: POTASSIUM CHLOR 20 MEQ PREMIX 100 ML IV SCH (01:14)
[2017-06-29] MEDS: VANCOMYCIN INJ 1,700 MG in SODIUM CHLORID 0.9% 500 ML INJ 500 ML IV SCH ×2 (01:23→20:26)
[2017-06-29] MEDS: ACETAMINOPHEN/HYDROcodone 325 MG/7.5 MG TAB PO PRN ×5 (03:42→21:31)
[2017-06-29] MEDS: RESP: ALBUTEROL 2.5 MG/IPRATROPIUM 0.5 MG NEB (SCH) INH ×4 (04:16→21:13)
[2017-06-29] MEDS ORDERED: GLUCAGON 1 MG/ML VIAL OTHER PRN (07:15)
[2017-06-29] MEDS ORDERED: GLUCAGON 1 MG/ML VIAL IM PRN (07:15)
[2017-06-29] MEDS ORDERED: DEXTROSE 50% IN WATER 50 ML VIAL(D50) IV PUSH PRN (07:15)
[2017-06-29] MEDS: SODIUM CHLORIDE 0.9% FLUSH 10 ML FLUSH IV FLUSH SCH ×2 (07:42→20:26)
[2017-06-29] MEDS: DOCUSATE SODIUM 50 MG/SENNA 8.6 MG TAB PO SCH ×2 (08:00→20:27)
[2017-06-29] MEDS: INSULIN ASPART SUPPLEMENTAL SCALE SQ SCH ×4 (08:00→21:00)
[2017-06-29 08:10] LABS: AUTOMATED NEUTROPHIL # 12.4 TH/MM3 (1.8-7.7); BASOPHIL # 0.1 TH/MM3 (0-0.2); BASOPHIL % 0.4 % (0.0-2.0); EOSINOPHIL # 0.2 TH/MM3 (0-0.4); EOSINOPHIL % 1.1 % (0.0-4.0); HEMATOCRIT 29.2 % (35.0-46.0); HEMOGLOBIN 9.8 GM/DL (11.6-15.3); LYMPH % 8.7 % (9.0-44.0); LYMPHOCYTE # 1.3 TH/MM3 (1.0-4.8); MEAN CELL VOLUME 87.9 FL (80.0-100.0); MEAN CORPUSCULAR HEMOGLOBIN 29.5 PG (27.0-34.0); MEAN CORPUSCULAR HGB CONC 33.6 % (32.0-36.0); MEAN PLATELET VOLUME 9.3 FL (7.0-11.0); MONOCYTE # 1.5 TH/MM3 (0-0.9); NEUT % 79.8 % (16.0-70.0); PLATELET COUNT 259 TH/MM3 (150-450); RED BLOOD COUNT 3.32 MIL/MM3 (4.00-5.30); RED CELL DISTRIBUTION WIDTH 14.8 % (11.6-17.2); WHITE BLOOD COUNT 15.5 TH/MM3 (4.0-11.0)
[2017-06-29] MEDS: amLODIPine BESYLATE 5 MG TAB PO SCH (08:27)
[2017-06-29] MEDS: NICOTINE 7 MG/24 HR PATCH T-DERMAL SCH (08:28)
[2017-06-29] MEDS: BACITRACIN TOP OINT 15 GM TUBE TOPICAL SCH ×2 (08:28→20:27)
[2017-06-29] MEDS: REMOVE OLD PATCH T-DERMAL SCH (08:28)
[2017-06-29 08:36] LABS: BICARBONATE 19.6 MEQ/L (21.0-32.0); CALCIUM 8.4 MG/DL (8.5-10.1); CREATININE 1.36 MG/DL (0.50-1.00)
[2017-06-29] MEDS ORDERED: predniSONE 20 MG TAB PO SCH (09:00)
[2017-06-29] MEDS ORDERED: INFLUENZA VIRUS VACCINE (QUADRIVALENT) 0.5 ML SYR IM ONE (10:00)
[2017-06-29] MEDS ORDERED: PNEUMOCOCCAL POLYVALENT INJ 25 MCG/0.5 ML SYR IM ONE (10:00)
[2017-06-29] MEDS ORDERED: POTASSIUM CHLORIDE 20 MEQ CONTROLLED RELEASE TAB PO ONE ×2 (11:30→15:30)
--- NOTE | 2017-06-29 11:34 | HHI.FPPN ---
Subjective Remarks No acute events overnight. Patient has been afebrile. Patient lying in bed, doing well. Patient reports that she is still having CVA tenderness on the right side. She has had good urine output. She denies chest pain, shortness of breath, fevers, and nausea vomiting. No other complaints. (Linda Rasmussen MD R1) Objective Vitals Vital Signs Date Time Temp Pulse Resp B/P (MAP) Pulse Ox O2 Delivery O2 Flow Rate FiO2 06/29/17 08:26 98.1 94 17 118/61 (80) 95 06/29/17 08:16 98 Nasal Cannula 06/29/17 04:00 97.5 88 20 130/68 (88) 94 06/29/17 04:00 Room Air 06/29/17 04:00 89 06/29/17 00:00 99 06/29/17 00:00 98.3 101 20 143/74 (97) 93 06/29/17 00:00 Room Air 06/28/17 20:37 95 21 06/28/17 20:25 99.3 113 20 167/71 (103) 92 06/28/17 20:00 107 06/28/17 20:00 Room Air 06/28/17 18:45 98.4 99 26 133/73 (93) 96 06/28/17 18:03 06/28/17 15:27 99.1 97 21 139/81 (100) 97 Room Air 06/28/17 13:15 106 142/98 (113) I/O 06/28/17 06/28/17 06/28/17 06/29/17 06/29/17 06/29/17 07:00 15:00 23:00 07:00 15:00 23:00 Intake Total 2300 ml 50 ml 1869 ml 50 ml Balance 2300 ml 50 ml 1869 ml 50 ml Intake Oral 0 ml IV Total 2300 ml 50 ml 1869 ml 50 ml # Voids 5 # Bowel Movements 0 (Linda Rasmussen MD R1) Result Diagram: 06/29/17 0710 06/29/17 0700 Objective Remarks GENERAL: Obese patient, lying in bed, in no acute distress SKIN: Erythematous noted around the umbilicus. No fluctuance noted. HEAD: Atraumatic. Normocephalic. No temporal or scalp tenderness. EYES: Pupils equal round and reactive. Extraocular motions intact. No scleral icterus. No injection or drainage. ENT: Nose without bleeding, purulent drainage or septal hematoma. Throat without erythema, tonsillar hypertrophy or exudate. Uvula midline. Airway patent. NECK: Trachea midline. No JVD or lymphadenopathy. Supple, nontender, no meningeal signs. CARDIOVASCULAR: Regular rate and rhythm without murmurs, gallops, or rubs. RESPIRATORY: Decreased breath sounds on the right, mild crackles proved from prior exam, no wheezing GASTROINTESTINAL: Right CVA tenderness, umbilical hernia present MUSCULOSKELETAL: Nonpitting edema in lower extremities NEUROLOGICAL: Awake and alert. (Linda Rasmussen MD R1) A/P Assessment and Plan 42-year-old female with history of HTN, osteoarthritis, sciatica, multiple kidney stones with over 13 lithotripsies, presents to the ED with fevers and abdominal pain. Patient admitted for severe sepsis and workup. Discharge Planning Anticipate discharge in 1-2 days Patient will need to follow with PCP for sleep study and treatment of COPD (Linda Rasmussen MD R1) Problem List: (1) Severe sepsis ICD Codes: A41.9 - Sepsis, unspecified organism; R65.20 - Severe sepsis without septic shock Plan: Patient meets severe sepsis criteria due to fever of 100.8, tachycardia at 126 and WBC of 20.5 with known source of infection (pyelonephritis, pneumonia , cellulitis of umbilicus) and organ damage (creatinine elevated at 1.62). Labs and Imaging: WBC elevated at 20.5 with left shift, improved to 15.5 today Lactic acid of 1.0 Blood cultures no growth in 1 day Chest x-ray demonstrates increased right upper lung zone parenchymal opacity may reflect developing airspace disease Abdominal CT demonstrates right kidney with a mildly low with a lobular configuration and is smaller in size as compared to the left consistent with scarring. Slight perinephric stranding on the left. Treatment: Patient received 1 dose of vancomycin and Zosyn in the ED Continue with vancomycin, consult pharmacy for dosing Continue Zosyn 3.375 g IV every 6h Normal saline + 40meq KCl, 250mls/hr, maintenance rate (2) Pyelonephritis ICD Codes: N12 - Tubulo-interstitial nephritis, not specified as acute or chronic Status: Acute Plan: Patient has history of multiple kidney stones and history of UTIs UA positive for large leukocyte esterases, positive nitrates, bacteria. CT demonstrate slight perinephric stranding on the left. Urine culture pending, will wait for sensitivities and narrow antibiotics as needed Continue antibiotics above Urology consulted, recommendations appreciated -No acute intervention needed, continue with IV fluids and IV antibiotics , urology signing off (3) Pneumonia ICD Codes: J18.9 - Pneumonia, unspecified organism Status: Acute Plan: Chest x-ray positive for right upper lung zone parenchymal opacity Patient not requiring oxygen at this time Continue antibiotics as above Duo nebs every 6h (4) Cellulitis of umbilicus ICD Codes: L03.316 - Cellulitis of umbilicus Status: Acute Plan: Erythematous and purulent drainage of the umbilicus Wound culture pending General surgery consulted recommendations appreciated -Bacitracin twice daily, patient follow-up with surgery outpatient for elective umbilical hernia repair in 6-8 weeks (5) HTN (hypertension) ICD Codes: I10 - Essential (primary) hypertension Plan: Continue home amlodipine 5 mg p.o. daily Clonidine 0.1 mg p.o. every 6 hours as needed for blood pressure greater than 180/100 (6) Hypokalemia ICD Codes: E87.6 - Hypokalemia Status: Acute Plan: Potassium of 2.3 on admission once in the ED Improved to 2.8 today 40 mg and KCl added to fluids and potassium replaced orally We will follow-up with a BMP this afternoon (7) Smoking ICD Codes: F17.200 - Nicotine dependence, unspecified, uncomplicated Plan: Nicotine patch 7mg q24hr (8) Nutrition, metabolism, and development symptoms ICD Codes: R63.8 - Other symptoms and signs concerning food and fluid intake Plan: Diet: Patient to clear liquids Fluids: 250 mls/hr Electrolytes:replace as needed Vitals every 4, monitor I's and O's DVT ppx: SCDs and heparin 5000 units every 12h PT consulted (Linda Rasmussen MD R1) Problem List: (1) Severe sepsis ICD Codes: A41.9 - Sepsis, unspecified organism; R65.20 - Severe sepsis without septic shock Plan: Patient meets severe sepsis criteria due to fever of 100.8, tachycardia at 126 and WBC of 20.5 with known source of infection (pyelonephritis, pneumonia , cellulitis of umbilicus) and organ damage (creatinine elevated at 1.62). Labs and Imaging: WBC elevated at 20.5 with left shift, improved to 15.5 today Lactic acid of 1.0 Blood cultures no growth in 1 day Chest x-ray demonstrates increased right upper lung zone parenchymal opacity may reflect developing airspace disease Abdominal CT demonstrates right kidney with a mildly low with a lobular configuration and is smaller in size as compared to the left consistent with scarring. Slight perinephric stranding on the left. Treatment: Patient received 1 dose of vancomycin and Zosyn in the ED Continue with vancomycin, consult pharmacy for dosing Continue Zosyn 3.375 g IV every 6h Normal saline + 40meq KCl, 250mls/hr, maintenance rate (2) Pyelonephritis ICD Codes: N12 - Tubulo-interstitial nephritis, not specified as acute or chronic Status: Acute Plan: Patient has history of multiple kidney stones and history of UTIs UA positive for large leukocyte esterases, positive nitrates, bacteria. CT demonstrate slight perinephric stranding on the left. Urine culture pending, will wait for sensitivities and narrow antibiotics as needed Continue antibiotics above Urology consulted, recommendations appreciated -No acute intervention needed, continue with IV fluids and IV antibiotics , urology signing off (3) Pneumonia ICD Codes: J18.9 - Pneumonia, unspecified organism Status: Acute Plan: Chest x-ray positive for right upper lung zone parenchymal opacity Patient not requiring oxygen at this time Continue antibiotics as above Duo nebs every 6h (4) Cellulitis of umbilicus ICD Codes: L03.316 - Cellulitis of umbilicus Status: Acute Plan: Erythematous and purulent drainage of the umbilicus Wound culture pending General surgery consulted recommendations appreciated -Bacitracin twice daily, patient follow-up with surgery outpatient for elective umbilical hernia repair in 6-8 weeks (5) HTN (hypertension) ICD Codes: I10 - Essential (primary) hypertension Plan: Continue home amlodipine 5 mg p.o. daily Clonidine 0.1 mg p.o. every 6 hours as needed for blood pressure greater than 180/100 (6) Hypokalemia ICD Codes: E87.6 - Hypokalemia Status: Acute Plan: Potassium of 2.3 on admission once in the ED Improved to 2.8 today 40 mg and KCl added to fluids and potassium replaced orally We will follow-up with a BMP this afternoon (7) Smoking ICD Codes: F17.200 - Nicotine dependence, unspecified, uncomplicated Plan: Nicotine patch 7mg q24hr (8) Nutrition, metabolism, and development symptoms ICD Codes: R63.8 - Other symptoms and signs concerning food and fluid intake Plan: Diet: Patient to clear liquids Fluids: 250 mls/hr Electrolytes:replace as needed Vitals every 4, monitor I's and O's DVT ppx: SCDs and heparin 5000 units every 12h PT consulted See the residents documentation for details. I saw and evaluated the patient regarding the mazariegos portions of this evaluation and agree with the residents findings and plans as written. Parts of this note were created using [employer] voice recognition software program. While efforts were made to correct any mistakes made by this software, some mistakes, errors, and omissions may remain in the final note that were not caught when the note was originally created. Plan of care was discussed and agreed upon with the patient as specifically documented in the above note. An opportunity to ask questions with explanation was provided. Patient voiced understanding on all information reviewed and discussed. (Shiv Hernández MD) Problem Qualifiers (1) Pneumonia: Qualified Codes: J18.9 - Pneumonia, unspecified organism Linda Rasmussen MD R1 June 29, 2017 11:34 Shiv Hernández MD June 29, 2017 12:56
[2017-06-29] MEDS: HEPARIN SODIUM - SQ 10,000 UNITS/ML VIAL SQ SCH (12:11)
[2017-06-29] MEDS: NS + KCL 40 MEQ INJ 1,000 ML IV SCH ×3 (12:12→20:00)
[2017-06-29] MEDS: ATORVASTATIN 40 MG TAB PO SCH (12:13)
--- NOTE | 2017-06-29 13:21 | HHI.PR ---
cc: Kristi Lockhart MD Subjective Subjective Notes Being extremely short of breath with just causal conversation and minimal activity Objective Vitals/I&O Vital Signs Date Time Temp Pulse Resp B/P (MAP) Pulse Ox O2 Delivery O2 Flow Rate FiO2 06/29/17 12:00 97.9 89 19 156/71 (99) 94 06/29/17 08:16 Nasal Cannula 06/28/17 20:37 21 Labs Laboratory Tests Test 06/28/17 21:14 06/29/17 07:00 06/29/17 07:10 Blood Urea Nitrogen 22 20 Creatinine 1.59 1.36 Random Glucose 127 127 Calcium Level 8.8 8.4 Sodium Level 138 139 Potassium Level 2.4 2.8 Chloride Level 105 107 Carbon Dioxide Level 20.7 19.6 Anion Gap 12 12 Estimat Glomerular Filtration Rate 35 42 White Blood Count 15.5 Red Blood Count 3.32 Hemoglobin 9.8 Hematocrit 29.2 Mean Corpuscular Volume 87.9 Mean Corpuscular Hemoglobin 29.5 Mean Corpuscular Hemoglobin Concent 33.6 Red Cell Distribution Width 14.8 Platelet Count 259 Mean Platelet Volume 9.3 Neutrophils (%) (Auto) 79.8 Lymphocytes (%) (Auto) 8.7 Monocytes (%) (Auto) 10.0 Eosinophils (%) (Auto) 1.1 Basophils (%) (Auto) 0.4 Neutrophils # (Auto) 12.4 Lymphocytes # (Auto) 1.3 Monocytes # (Auto) 1.5 Eosinophils # (Auto) 0.2 Basophils # (Auto) 0.1 CBC Comment DIFF FINAL Differential Comment Date/Time Source Procedure Growth Status 06/28/17 12:30 Blood Peripheral Aerobic Blood Culture - Preliminary NO GROWTH IN 1 DAY Resulted 06/28/17 12:30 Blood Peripheral Anaerobic Blood Culture - Preliminary NO GROWTH IN 1 DAY Resulted 06/28/17 12:35 Nasal Aspirate Influenza Types A,B Antigen (ARNOLD) - Final NEGATIVE FOR FLU A AND B ANTIGEN.... Complete 06/28/17 11:40 Urine Catheterized Urine Urine Culture Pending Received 06/28/17 11:40 Wound Abdomen Gram Stain - Final Resulted 06/28/17 11:40 Wound Abdomen Wound Culture Pending Resulted Cardiovascular: Regular Lungs: Clear Abdomen: Other (umbilical hernia notes--- areas of ulcerations with some mild drainage; obese abdomen ) Extremities: No edema A/P Assessment and Plan 42 year old female with pneumonia, umbilical hernia -Continue diet as tolerated -Apply bacitracin ointment BID to umbilicus -Okay to shower and re-apply ointment -Patient can follow up in the office for possible elective repair for umbilical hernia once more medically optimize; likely in 6-8 weeks. PT SEEN AND EVALUATED WITH LEAD VULCANIZING OPERATOR WHO DOCUMENTED OUR VISIT. HERNIA REPAIR NOT INDICATED AT THIS TIME DUE TO OTHER MEDICAL PROBLEMS. RECOMMEND FU IN OFFICE FOR ELECTIVE REPAIR ONCE MEDICAL CONDITION IMPROVES. KRISTI LOCKHART MD FACS Yelena Buckley. LEAD VULCANIZING OPERATOR/Car Record Clerk LEAD VULCANIZING OPERATOR June 29, 2017 13:21 Kristi Lockhart MD July 04, 2017 21:39
[2017-06-29 14:37] LABS: BICARBONATE 19.5 MEQ/L (21.0-32.0); CALCIUM 8.6 MG/DL (8.5-10.1); CREATININE 1.31 MG/DL (0.50-1.00)
--- NOTE | 2017-06-29 22:45 | EKG ---
Date Performed: 06/28/2017 Time Performed: 12:35:56 PTAGE: 42 years EKG: SINUS TACHYCARDIA MODERATE INTRAVENTRICULAR CONDUCTION DELAY NONSPECIFIC ST & T-WAVE ABNORM ALITY ABNORMAL ECG PREVIOUS TRACING : 03/27/2013 19.49 Since the previous tracing, no significant change noted DOCTOR: David English Interpretating Date/Time 06/29/2017 22:44:34
[2017-06-29 22:48] LABS: BICARBONATE 18.6 MEQ/L (21.0-32.0); CALCIUM 8.6 MG/DL (8.5-10.1); CREATININE 1.17 MG/DL (0.50-1.00)
[2017-06-30] VITALS (13 sets, daily range): BP systolic 119–146; BP diastolic 58–68; PULSE 74–109; RESP 18–20; TEMP 97.6–99.2; O2SAT 93–98
[2017-06-30] MEDS ORDERED: POTASSIUM CHLORIDE 10 MEQ CONTROLLED RELEASE TAB PO ONE (00:15)
[2017-06-30] MEDS: HEPARIN SODIUM - SQ 10,000 UNITS/ML VIAL SQ SCH ×2 (01:00→12:30)
[2017-06-30] MEDS: PIPERACIL-TAZO 3.375 GM PREMIX 50 ML IV SCH ×2 (01:20→08:47)
[2017-06-30] MEDS: ACETAMINOPHEN/HYDROcodone 325 MG/7.5 MG TAB PO PRN ×5 (01:21→18:32)
[2017-06-30] MEDS: NS + KCL 40 MEQ INJ 1,000 ML IV SCH ×2 (03:28→10:56)
[2017-06-30] MEDS: RESP: ALBUTEROL 2.5 MG/IPRATROPIUM 0.5 MG NEB (SCH) INH ×4 (05:22→21:31)
[2017-06-30 07:16] LABS: HEMATOCRIT 30.2 % (35.0-46.0); HEMOGLOBIN 10.2 GM/DL (11.6-15.3); MEAN CELL VOLUME 89.1 FL (80.0-100.0); MEAN CORPUSCULAR HEMOGLOBIN 30.1 PG (27.0-34.0); MEAN CORPUSCULAR HGB CONC 33.7 % (32.0-36.0); MEAN PLATELET VOLUME 8.9 FL (7.0-11.0); PLATELET COUNT 299 TH/MM3 (150-450); RED BLOOD COUNT 3.39 MIL/MM3 (4.00-5.30); WHITE BLOOD COUNT 14.3 TH/MM3 (4.0-11.0)
[2017-06-30 08:04] LABS: BICARBONATE 20.4 MEQ/L (21.0-32.0); CALCIUM 8.5 MG/DL (8.5-10.1); CREATININE 1.09 MG/DL (0.50-1.00)
[2017-06-30] MEDS: DOCUSATE SODIUM 50 MG/SENNA 8.6 MG TAB PO SCH ×2 (08:45→20:57)
[2017-06-30] MEDS: NICOTINE 7 MG/24 HR PATCH T-DERMAL SCH (08:46)
[2017-06-30] MEDS: amLODIPine BESYLATE 5 MG TAB PO SCH (08:46)
[2017-06-30] MEDS: ATORVASTATIN 40 MG TAB PO SCH (08:46)
[2017-06-30] MEDS: SODIUM CHLORIDE 0.9% FLUSH 10 ML FLUSH IV FLUSH SCH ×2 (08:52→20:59)
[2017-06-30] MEDS: REMOVE OLD PATCH T-DERMAL SCH (08:52)
[2017-06-30] MEDS: BACITRACIN TOP OINT 15 GM TUBE TOPICAL SCH ×2 (09:00→20:57)
[2017-06-30] MEDS ORDERED: NEBULIZER1 MI1 (09:33)
[2017-06-30] MEDS: INSULIN ASPART SUPPLEMENTAL SCALE SQ SCH ×4 (09:49→20:58)
[2017-06-30] MEDS: AZITHROMYCIN 250 MG TAB PO SCH (10:01)
--- NOTE | 2017-06-30 10:11 | HHI.FPPN ---
Subjective Remarks Patient is doing much better this morning. She is breathing better and states that the breathing treatments have helped a lot. She is able to inspire double what she did the previous day on the incentive spirometer. Her cough is now productive of sputum. She is aware of her new diabetes diagnosis and the dietary changes she needs to make. She was already working on diet with Dr. Paris in preparation for gastric bypass surgery. The hernia around her umbilical area is much improved. She still has pain in her back, mostly on the left side but overall has greatly improved. (Dennise Ayala MD R2) Objective Vitals Vital Signs Date Time Temp Pulse Resp B/P (MAP) Pulse Ox O2 Delivery O2 Flow Rate FiO2 06/30/17 08:37 96 06/30/17 08:34 98.0 89 18 128/60 (82) 95 06/30/17 05:25 98 06/30/17 04:00 97.6 88 18 134/62 (86) 95 06/30/17 04:00 Room Air 06/30/17 04:00 74 06/30/17 00:00 Room Air 06/30/17 00:00 75 06/29/17 23:20 97.6 88 18 133/58 (83) 93 06/29/17 20:00 79 06/29/17 20:00 Room Air 06/29/17 19:45 97.6 81 18 148/83 (104) 95 06/29/17 16:00 97.8 88 19 144/99 (114) 95 06/29/17 15:54 80 06/29/17 15:46 95 21 06/29/17 12:12 88 06/29/17 12:00 97.9 89 19 156/71 (99) 94 I/O 06/29/17 06/29/17 06/29/17 06/30/17 06/30/17 06/30/17 07:00 15:00 23:00 07:00 15:00 23:00 Intake Total 1869 ml 50 ml 1527 ml 2657 ml Output Total 1500 ml Balance 1869 ml 50 ml 1527 ml 1157 ml Intake Oral 0 ml 960 ml 1080 ml IV Total 1869 ml 50 ml 567 ml 1577 ml Output Urine Total 1500 ml # Voids 5 5 # Bowel Movements 0 1 2 (Dennise Ayala MD R2) Result Diagram: 06/30/17 0540 06/30/1740 Objective Remarks GENERAL: Obese patient, sitting in up in a chair, eating breakfast, in no acute distress SKIN: Skin around umbilicus much improved. No fluctuance noted. HEAD: Atraumatic. Normocephalic. No temporal or scalp tenderness. CARDIOVASCULAR: Regular rate and rhythm without murmurs, gallops, or rubs. RESPIRATORY: Moving air well, no wheezes or crackles GASTROINTESTINAL: Left CVA tenderness, umbilical hernia reduced NEUROLOGICAL: Awake and alert. (EkoDennise MD R2) A/P Assessment and Plan 42-year-old female with history of HTN, osteoarthritis, sciatica, multiple kidney stones with over 13 lithotripsies, presented to the ED with fevers and abdominal pain. Patient admitted for severe sepsis and workup found to have pneumonia, pyelonephritis, and umbilical cellulitis. Discharge Planning Anticipate discharge tomorrow Patient will need to follow with PCP for sleep study and treatment of COPD (Dennise Ayala MD R2) Problem List: (1) Severe sepsis ICD Codes: A41.9 - Sepsis, unspecified organism; R65.20 - Severe sepsis without septic shock Status: Resolved Plan: Patient met severe sepsis criteria due to fever of 100.8, tachycardia at 126 and WBC of 20.5 with known source of infection (pyelonephritis, pneumonia, cellulitis of umbilicus) and organ damage (creatinine elevated at 1.62). Labs and Imaging: WBC elevated at 20.5 with left shift, improved to 14.5 today Lactic acid of 1.0 Blood cultures no growth in 1 day Chest x-ray demonstrates increased right upper lung zone parenchymal opacity may reflect developing airspace disease Abdominal CT demonstrates right kidney with a mildly low with a lobular configuration and is smaller in size as compared to the left consistent with scarring. Slight perinephric stranding on the left. See problem list and plan below (2) Pyelonephritis ICD Codes: N12 - Tubulo-interstitial nephritis, not specified as acute or chronic Status: Acute Plan: Patient has history of multiple kidney stones and history of UTIs UA positive for large leukocyte esterases, positive nitrates, bacteria. CT demonstrate slight perinephric stranding on the left. Urine culture gre E Coli sensitive to Ciprofloxacin, resistant to Bactrim Medications Switch to Rocephin 1g IV Q12h Most likely discharge home with Ciprofloxacin (3) Pneumonia ICD Codes: J18.9 - Pneumonia, unspecified organism Status: Acute Plan: Chest x-ray positive for right upper lung zone parenchymal opacity Patient not requiring oxygen at this time Start Rocephin IV as above Start Azithromycin 500 mg PO daily Mucinex for cough Duonebs every 6h Incentive spirometer Repeat PA/LAT CXR today PFTs as an outpatient (4) Acute kidney injury ICD Codes: N17.9 - Acute kidney failure, unspecified Plan: -Resolving -Creatinine 1.59 on admission, baseline 0.78 in May 2016 -Downtrending, 1.09 today -On maintenance IV fluids -Continue to monitor (5) Cellulitis of umbilicus ICD Codes: L03.316 - Cellulitis of umbilicus Status: Acute Plan: Erythematous and purulent drainage of the umbilicus Wound culture showed heavy growth of normal skin robi General surgery consulted recommendations appreciated -Bacitracin twice daily, patient follow-up with surgery outpatient for elective umbilical hernia repair in 6-8 weeks (6) HTN (hypertension) ICD Codes: I10 - Essential (primary) hypertension Plan: Continue home amlodipine 5 mg p.o. daily Clonidine 0.1 mg p.o. every 6 hours as needed for blood pressure greater than 180/100 (7) Diabetes mellitus ICD Codes: E11.9 - Type 2 diabetes mellitus without complications Plan: -Newly diagnosed, A1C 6.7 on admission -On SSI - required 13 units in the last 24 hours -Plan to discharge on Metformin 500mg PO BID -PCP to titrate up as needed (8) Hypokalemia ICD Codes: E87.6 - Hypokalemia Status: Acute Plan: Resolving Potassium of 2.3 on admission once in the ED Improved to 3.2 today Monitor and replete as needed (9) Smoking ICD Codes: F17.200 - Nicotine dependence, unspecified, uncomplicated Plan: Nicotine patch 7mg q24hr Patient is working on quitting in preparation for gastric bypass surgery (10) Nutrition, metabolism, and development symptoms ICD Codes: R63.8 - Other symptoms and signs concerning food and fluid intake Plan: Diet: Patient to clear liquids Fluids: 200 mls/hr, at maintenance Electrolytes: replace as needed Vitals every 4, monitor I's and O's DVT ppx: SCDs and heparin 5000 units every 12h PT consulted SDW Dr. Hernández, Dr. Rasmussen, and Shae Lucas, MS4 (Dennise Ayala MD R2) Problem List: (1) Severe sepsis ICD Codes: A41.9 - Sepsis, unspecified organism; R65.20 - Severe sepsis without septic shock Status: Resolved Plan: Patient met severe sepsis criteria due to fever of 100.8, tachycardia at 126 and WBC of 20.5 with known source of infection (pyelonephritis, pneumonia, cellulitis of umbilicus) and organ damage (creatinine elevated at 1.62). Labs and Imaging: WBC elevated at 20.5 with left shift, improved to 14.5 today Lactic acid of 1.0 Blood cultures no growth in 1 day Chest x-ray demonstrates increased right upper lung zone parenchymal opacity may reflect developing airspace disease Abdominal CT demonstrates right kidney with a mildly low with a lobular configuration and is smaller in size as compared to the left consistent with scarring. Slight perinephric stranding on the left. See problem list and plan below (2) Pyelonephritis ICD Codes: N12 - Tubulo-interstitial nephritis, not specified as acute or chronic Status: Acute Plan: Patient has history of multiple kidney stones and history of UTIs UA positive for large leukocyte esterases, positive nitrates, bacteria. CT demonstrate slight perinephric stranding on the left. Urine culture gre E Coli sensitive to Ciprofloxacin, resistant to Bactrim Medications Switch to Rocephin 1g IV Q12h Most likely discharge home with Ciprofloxacin (3) Pneumonia ICD Codes: J18.9 - Pneumonia, unspecified organism Status: Acute Plan: Chest x-ray positive for right upper lung zone parenchymal opacity Patient not requiring oxygen at this time Start Rocephin IV as above Start Azithromycin 500 mg PO daily Mucinex for cough Duonebs every 6h Incentive spirometer Repeat PA/LAT CXR today PFTs as an outpatient (4) Acute kidney injury ICD Codes: N17.9 - Acute kidney failure, unspecified Plan: -Resolving -Creatinine 1.59 on admission, baseline 0.78 in May 2016 -Downtrending, 1.09 today -On maintenance IV fluids -Continue to monitor (5) Cellulitis of umbilicus ICD Codes: L03.316 - Cellulitis of umbilicus Status: Acute Plan: Erythematous and purulent drainage of the umbilicus Wound culture showed heavy growth of normal skin robi General surgery consulted recommendations appreciated -Bacitracin twice daily, patient follow-up with surgery outpatient for elective umbilical hernia repair in 6-8 weeks (6) HTN (hypertension) ICD Codes: I10 - Essential (primary) hypertension Plan: Continue home amlodipine 5 mg p.o. daily Clonidine 0.1 mg p.o. every 6 hours as needed for blood pressure greater than 180/100 (7) Diabetes mellitus ICD Codes: E11.9 - Type 2 diabetes mellitus without complications Plan: -Newly diagnosed, A1C 6.7 on admission -On SSI - required 13 units in the last 24 hours -Plan to discharge on Metformin 500mg PO BID -PCP to titrate up as needed (8) Hypokalemia ICD Codes: E87.6 - Hypokalemia Status: Acute Plan: Resolving Potassium of 2.3 on admission once in the ED Improved to 3.2 today Monitor and replete as needed (9) Smoking ICD Codes: F17.200 - Nicotine dependence, unspecified, uncomplicated Plan: Nicotine patch 7mg q24hr Patient is working on quitting in preparation for gastric bypass surgery (10) Nutrition, metabolism, and development symptoms ICD Codes: R63.8 - Other symptoms and signs concerning food and fluid intake Plan: Diet: Patient to clear liquids Fluids: 200 mls/hr, at maintenance Electrolytes: replace as needed Vitals every 4, monitor I's and O's DVT ppx: SCDs and heparin 5000 units every 12h PT consulted SDW Dr. Hernández, Dr. Rasmussen, and Shae Lucas, MS4 See the residents documentation for details. I saw and evaluated the patient regarding the mazariegos portions of this evaluation and agree with the residents findings and plans as written. Parts of this note were created using [email or web address] voice recognition software program. While efforts were made to correct any mistakes made by this software, some mistakes, errors, and omissions may remain in the final note that were not caught when the note was originally created. Plan of care was discussed and agreed upon with the patient as specifically documented in the above note. An opportunity to ask questions with explanation was provided. Patient voiced understanding on all information reviewed and discussed. (Shiv Hernández MD) Problem Qualifiers (1) Pneumonia: Qualified Codes: J18.9 - Pneumonia, unspecified organism Dennise Ayala MD R2 June 30, 2017 10:11 Shiv Hernández MD June 30, 2017 12:28
[2017-06-30] MEDS: guaiFENesin E.R. 600 MG TAB PO SCH ×2 (11:34→20:57)
--- NOTE | 2017-06-30 12:00 | RADRPT ---
EXAM DATE/TIME: 06/30/2017 10:28 [facility] COMPARISON: CT ABDOMEN & PELVIS W CONTRAST, June 28, 2017, 13:57. CHEST PA & LAT, June 28, 2017, 12:21. INDICATIONS : Pneumonia. Patient states she has bilateral kidney infection. MEDICAL HISTORY : Hypertension. Renal calculi. SURGICAL HISTORY : Tubal ligation. 12 years ago. ENCOUNTER: Subsequent ACUITY: 2 days PAIN SCORE: 0/10 LOCATION: Bilateral chest FINDINGS: PA and lateral views of the thorax demonstrate patchy bilateral infiltrates. Differential considerati ons include early interstitial edema versus pneumonia. The heart is mildly enlarged. There is no pleu ral effusion. The visualized bony structures are grossly intact. CONCLUSION: 1. Bilateral infiltrates. There has been mild interval worsening compared to previous dated 06/28/17. Johan Caal MD on June 30, 2017 at 11:57 Board Certified Radiologist. This report was verified electronically.
[2017-06-30] MEDS ORDERED: PHARMACY ORDERED LAB ONE (13:45)
[2017-06-30] MEDS: cefTRIAXone INJ 1,000 MG in SODIUM CHLORIDE 0.9% INJ 100 ML IV SCH (15:07)
[2017-06-30] MEDS ORDERED: IPRASOL INH (20:47)
[2017-06-30] MEDS ORDERED: QC B500O TOPICAL (20:47)
[2017-06-30] MEDS: ZOLPIDEM TARTRATE 5 MG TAB PO PRN (23:08)
[2017-06-30] MEDS: ACETAMINOPHEN/HYDROcodone 325 MG/5 MG TAB PO PRN (23:10)
[2017-07-01] VITALS (11 sets, daily range): BP systolic 123–143; BP diastolic 59–89; PULSE 88–106; RESP 18–20; TEMP 97.1–99.6; O2SAT 91–95
[2017-07-01] MEDS: HEPARIN SODIUM - SQ 10,000 UNITS/ML VIAL SQ SCH ×2 (00:51→12:51)
[2017-07-01] MEDS: cefTRIAXone INJ 1,000 MG in SODIUM CHLORIDE 0.9% INJ 100 ML IV SCH (03:24)
[2017-07-01] MEDS: ACETAMINOPHEN/HYDROcodone 325 MG/7.5 MG TAB PO PRN (03:30)
[2017-07-01] MEDS: RESP: ALBUTEROL 2.5 MG/IPRATROPIUM 0.5 MG NEB (SCH) INH ×4 (03:46→20:02)
[2017-07-01] MEDS: INSULIN ASPART SUPPLEMENTAL SCALE SQ SCH ×4 (08:00→22:26)
[2017-07-01] MEDS: ATORVASTATIN 40 MG TAB PO SCH (08:46)
[2017-07-01] MEDS: guaiFENesin E.R. 600 MG TAB PO SCH ×2 (08:46→22:25)
[2017-07-01] MEDS: amLODIPine BESYLATE 5 MG TAB PO SCH (08:46)
[2017-07-01] MEDS: AZITHROMYCIN 250 MG TAB PO SCH (08:46)
[2017-07-01] MEDS: DOCUSATE SODIUM 50 MG/SENNA 8.6 MG TAB PO SCH ×2 (08:46→22:25)
[2017-07-01] MEDS: NICOTINE 7 MG/24 HR PATCH T-DERMAL SCH (08:47)
[2017-07-01] MEDS: SODIUM CHLORIDE 0.9% FLUSH 10 ML FLUSH IV FLUSH SCH ×2 (08:47→22:24)
[2017-07-01] MEDS: BACITRACIN TOP OINT 15 GM TUBE TOPICAL SCH ×2 (08:47→21:00)
[2017-07-01] MEDS: ACETAMINOPHEN/HYDROcodone 325 MG/5 MG TAB PO PRN ×4 (08:57→22:46)
[2017-07-01] MEDS: REMOVE OLD PATCH T-DERMAL SCH (09:00)
[2017-07-01 09:24] LABS: HEMATOCRIT 29.7 % (35.0-46.0); HEMOGLOBIN 10.1 GM/DL (11.6-15.3); MEAN CELL VOLUME 86.4 FL (80.0-100.0); MEAN CORPUSCULAR HEMOGLOBIN 29.4 PG (27.0-34.0); MEAN CORPUSCULAR HGB CONC 34.1 % (32.0-36.0); MEAN PLATELET VOLUME 8.7 FL (7.0-11.0); PLATELET COUNT 369 TH/MM3 (150-450); RED BLOOD COUNT 3.44 MIL/MM3 (4.00-5.30); RED CELL DISTRIBUTION WIDTH 15.3 % (11.6-17.2); WHITE BLOOD COUNT 14.2 TH/MM3 (4.0-11.0)
[2017-07-01 09:53] LABS: BICARBONATE 19.2 MEQ/L (21.0-32.0); CALCIUM 8.8 MG/DL (8.5-10.1); CREATININE 0.83 MG/DL (0.50-1.00)
--- NOTE | 2017-07-01 10:05 | HHI.FPPN ---
Subjective Remarks Patient was lying in bed this morning. She states that yesterday, she had an unprovoked period of shortness of breath when she was resting in a chair. She is now requiring oxygen after she walks from the bathroom. She has been short of breath on exertion at home but never like this. She believes that it is the pneumonia that is acting up. She still has some mild back pain. (Dennise Ayala MD R2) Objective Vitals Vital Signs Date Time Temp Pulse Resp B/P (MAP) Pulse Ox O2 Delivery O2 Flow Rate FiO2 07/01/17 08:00 98.5 97 18 123/59 (80) 94 07/01/17 08:00 96 07/01/17 04:32 18 07/01/17 04:10 99.6 106 20 136/59 (84) 95 07/01/17 04:00 Nasal Cannula 2.00 07/01/17 04:00 104 07/01/17 00:51 19 07/01/17 00:00 Nasal Cannula 2.00 07/01/17 00:00 101 06/30/17 23:53 98.8 109 20 119/58 (78) 94 06/30/17 21:30 Nasal Cannula 3.00 06/30/17 20:40 99.2 104 20 132/59 (83) 96 06/30/17 20:00 107 06/30/17 16:00 99.1 100 18 146/65 (92) 96 06/30/17 16:00 95 06/30/17 15:42 93 21 06/30/17 15:00 90 06/30/17 12:00 98.1 90 18 137/68 (91) 95 I/O 06/30/17 06/30/17 06/30/17 07/01/17 07/01/17 07/01/17 07:00 15:00 23:00 07:00 15:00 23:00 Intake Total 2657 ml 50 ml 720 ml 1060 ml Output Total 1500 ml 1200 ml Balance 1157 ml 50 ml 720 ml -140 ml Intake Oral 1080 ml 720 ml 960 ml IV Total 1577 ml 50 ml 100 ml Output Urine Total 1500 ml 1200 ml # Voids 7 # Bowel Movements 2 2 0 (Dennise Ayala MD R2) Result Diagram: 07/01/17 0900 06/30/17 0540 Imaging Last 72 hours Impressions Chest X-Ray 06/30/17 0000 Signed Impressions: Service Date/Time: June 10:28 - CONCLUSION: 1. Bilateral infiltrates. There has been mild interval worsening compared to previous dated 06/28/17. Johan Caal MD Chest X-Ray 06/28/17 1131 Signed Impressions: Service Date/Time: Wednesday, June 28, 2017 11:37 - CONCLUSION: 1. Subtle increased right upper lung zone parenchymal opacity may reflect developing airspace disease. Consider formal PA and lateral views of the chest for better evaluation. Grabiel Anderson MD Abdomen/Pelvis CT 06/28/17 1131 Signed Impressions: Service Date/Time: Wednesday, June 28, 2017 13:57 - CONCLUSION: Right kidney has a mildly lobular configuration and is smaller in size as compared to the left consistent with scarring. Slight perinephric stranding on the left is nonspecific however pyelonephritis should be excluded. Favian Oleary MD Objective Remarks GENERAL: Obese patient, lying in bed, in no acute distress SKIN: Skin around umbilicus much improved. No fluctuance noted. HEAD: Atraumatic. Normocephalic. No temporal or scalp tenderness. CARDIOVASCULAR: Regular rate and rhythm without murmurs, gallops, or rubs. RESPIRATORY: Moving air well, no wheezes or crackles but dull in the lung bases NEUROLOGICAL: Awake and alert. (Eko,Dennise SOMMERS R2) A/P Assessment and Plan 42-year-old female with history of HTN, osteoarthritis, sciatica, multiple kidney stones with over 13 lithotripsies, presented to the ED with fevers and abdominal pain. Patient admitted for severe sepsis and workup found to have pneumonia, pyelonephritis, and umbilical cellulitis. Discharge Planning Anticipate discharge tomorrow (Dennise Ayala MD R2) Problem List: (1) Severe sepsis ICD Codes: A41.9 - Sepsis, unspecified organism; R65.20 - Severe sepsis without septic shock Status: Resolved Plan: Patient met severe sepsis criteria due to fever of 100.8, tachycardia at 126 and WBC of 20.5 with known source of infection (pyelonephritis, pneumonia, cellulitis of umbilicus) and organ damage (creatinine elevated at 1.62). Labs and Imaging: WBC elevated at 20.5 with left shift, improved to 14.2 today, stable from 14.3 on the previous day Chest x-ray on admission demonstrates increased right upper lung zone parenchymal opacity may reflect developing airspace disease CXR on 06/30 showed worsening of bilateral infiltrates Repeat CXR on 07/01 pending See problem list and plan below (2) Pyelonephritis ICD Codes: N12 - Tubulo-interstitial nephritis, not specified as acute or chronic Status: Acute Plan: Patient has history of multiple kidney stones and history of UTIs UA positive for large leukocyte esterases, positive nitrates, bacteria. CT demonstrate slight perinephric stranding on the left. Urine culture gre E Coli sensitive to Ciprofloxacin, resistant to Bactrim Medications Continue Rocephin 1g IV Q12h Most likely discharge home with Ciprofloxacin (3) Pneumonia ICD Codes: J18.9 - Pneumonia, unspecified organism Status: Acute Plan: Continue Rocephin IV as above Continue Azithromycin 500 mg PO daily Start Solumedrol 40mg IV Q12h Mucinex for cough Duonebs every 6h Incentive spirometer Repeat PA/LAT CXR today PFTs as an outpatient (4) Acute kidney injury ICD Codes: N17.9 - Acute kidney failure, unspecified Status: Resolved Plan: -Creatinine 1.59 on admission, baseline 0.78 in May 2016 -0.83 today -On oral fluids -Continue to monitor (5) Cellulitis of umbilicus ICD Codes: L03.316 - Cellulitis of umbilicus Status: Acute Plan: Erythematous and purulent drainage of the umbilicus on admission Much improved Wound culture showed heavy growth of normal skin robi General surgery consulted recommendations appreciated -Bacitracin twice daily, patient follow-up with surgery outpatient for elective umbilical hernia repair in 6-8 weeks (6) HTN (hypertension) ICD Codes: I10 - Essential (primary) hypertension Plan: Continue home amlodipine 5 mg p.o. daily Clonidine 0.1 mg p.o. every 6 hours as needed for blood pressure greater than 180/100 (7) Diabetes mellitus ICD Codes: E11.9 - Type 2 diabetes mellitus without complications Plan: -Newly diagnosed, A1C 6.7 on admission -On SSI - required 3 units in the last 24 hours -Plan to discharge on Metformin 500mg PO BID -PCP to titrate up as needed (8) Hypokalemia ICD Codes: E87.6 - Hypokalemia Status: Acute Plan: Potassium of 2.3 on admission once in the ED Improved to 3.2 yesterday but dropped to 2.8 today Monitor and replete as needed (9) Smoking ICD Codes: F17.200 - Nicotine dependence, unspecified, uncomplicated Plan: Nicotine patch 7mg q24hr Patient is working on quitting in preparation for gastric bypass surgery (10) Nutrition, metabolism, and development symptoms ICD Codes: R63.8 - Other symptoms and signs concerning food and fluid intake Plan: Diet: Diabetic diet Fluids: oral fluids only Electrolytes: replace as needed Vitals every 4, monitor I's and O's DVT ppx: SCDs and heparin 5000 units every 12h PT consulted SDW Dr. Hernández, Dr. Rasmussen, and Shae Lucas, MS4 (Dennise Ayala MD R2) Problem List: (1) Severe sepsis ICD Codes: A41.9 - Sepsis, unspecified organism; R65.20 - Severe sepsis without septic shock Status: Resolved Plan: Patient met severe sepsis criteria due to fever of 100.8, tachycardia at 126 and WBC of 20.5 with known source of infection (pyelonephritis, pneumonia, cellulitis of umbilicus) and organ damage (creatinine elevated at 1.62). Labs and Imaging: WBC elevated at 20.5 with left shift, improved to 14.2 today, stable from 14.3 on the previous day Chest x-ray on admission demonstrates increased right upper lung zone parenchymal opacity may reflect developing airspace disease CXR on 06/30 showed worsening of bilateral infiltrates Repeat CXR on 07/01 pending See problem list and plan below (2) Pyelonephritis ICD Codes: N12 - Tubulo-interstitial nephritis, not specified as acute or chronic Status: Acute Plan: Patient has history of multiple kidney stones and history of UTIs UA positive for large leukocyte esterases, positive nitrates, bacteria. CT demonstrate slight perinephric stranding on the left. Urine culture gre E Coli sensitive to Ciprofloxacin, resistant to Bactrim Medications Continue Rocephin 1g IV Q12h Most likely discharge home with Ciprofloxacin (3) Pneumonia ICD Codes: J18.9 - Pneumonia, unspecified organism Status: Acute Plan: Continue Rocephin IV as above Continue Azithromycin 500 mg PO daily Start Solumedrol 40mg IV Q12h Mucinex for cough Duonebs every 6h Incentive spirometer Repeat PA/LAT CXR today PFTs as an outpatient (4) Acute kidney injury ICD Codes: N17.9 - Acute kidney failure, unspecified Status: Resolved Plan: -Creatinine 1.59 on admission, baseline 0.78 in May 2016 -0.83 today -On oral fluids -Continue to monitor (5) Cellulitis of umbilicus ICD Codes: L03.316 - Cellulitis of umbilicus Status: Acute Plan: Erythematous and purulent drainage of the umbilicus on admission Much improved Wound culture showed heavy growth of normal skin robi General surgery consulted recommendations appreciated -Bacitracin twice daily, patient follow-up with surgery outpatient for elective umbilical hernia repair in 6-8 weeks (6) HTN (hypertension) ICD Codes: I10 - Essential (primary) hypertension Plan: Continue home amlodipine 5 mg p.o. daily Clonidine 0.1 mg p.o. every 6 hours as needed for blood pressure greater than 180/100 (7) Diabetes mellitus ICD Codes: E11.9 - Type 2 diabetes mellitus without complications Plan: -Newly diagnosed, A1C 6.7 on admission -On SSI - required 3 units in the last 24 hours -Plan to discharge on Metformin 500mg PO BID -PCP to titrate up as needed (8) Hypokalemia ICD Codes: E87.6 - Hypokalemia Status: Acute Plan: Potassium of 2.3 on admission once in the ED Improved to 3.2 yesterday but dropped to 2.8 today Monitor and replete as needed (9) Smoking ICD Codes: F17.200 - Nicotine dependence, unspecified, uncomplicated Plan: Nicotine patch 7mg q24hr Patient is working on quitting in preparation for gastric bypass surgery (10) Nutrition, metabolism, and development symptoms ICD Codes: R63.8 - Other symptoms and signs concerning food and fluid intake Plan: Diet: Diabetic diet Fluids: oral fluids only Electrolytes: replace as needed Vitals every 4, monitor I's and O's DVT ppx: SCDs and heparin 5000 units every 12h PT consulted SDW Dr. Hernández, Dr. Rasmussen, and Shae Lucas MS4 See the residents documentation for details. I saw and evaluated the patient regarding the mazariegos portions of this evaluation and agree with the residents findings and plans as written. Parts of this note were created using [employer] voice recognition software program. While efforts were made to correct any mistakes made by this software, some mistakes, errors, and omissions may remain in the final note that were not caught when the note was originally created. Plan of care was discussed and agreed upon with the patient as specifically documented in the above note. An opportunity to ask questions with explanation was provided. Patient voiced understanding on all information reviewed and discussed. (Shiv Hernández MD) Problem Qualifiers (1) Pneumonia: Qualified Codes: J18.9 - Pneumonia, unspecified organism Dennise Ayala MD R2 July 01, 2017 10:05 Shiv Hernández MD July 02, 2017 10:11
--- NOTE | 2017-07-01 10:23 | RADRPT ---
EXAM DATE/TIME: 07/01/2017 09:59 [facility] COMPARISON: CHEST PA & LAT, June 30, 2017, 10:28. INDICATIONS : Shortness of breath, chest pain. MEDICAL HISTORY : Hypertension. Diabetes mellitus type II. Smoker. SURGICAL HISTORY : Tubal ligation. section. ENCOUNTER: Subsequent ACUITY: 3 days PAIN SCORE: 3/10 LOCATION: Right chest FINDINGS: PA and lateral views of the chest demonstrate persistent bilateral airspace disease predominantly in a perihilar distribution. Diagnostic considerations in this pattern include vascular congestion/volum e overload versus hypersensitivity pneumonitis. No effusions. Heart size is borderline. Osseous struc tures are intact CONCLUSION: 1. Predominately perihilar persistent airspace infiltrates. Again, diagnostic considerations include vascular congestion or possibly a hypersensitivity pneumonitis. 2. Borderline prominent but well compensated heart Rodney Arvizu MD on July 01, 2017 at 10:19 Board Certified Radiologist. This report was verified electronically.
[2017-07-01] MEDS: methylPREDNISolone SOD SUCC 40 MG/1 ML VIAL IV PUSH SCH ×2 (10:25→22:25)
[2017-07-01] MEDS ORDERED: POTASSIUM CHLORIDE 10 MEQ CONTROLLED RELEASE TAB PO ONE (11:00)
[2017-07-01] MEDS ORDERED: FUROSEMIDE 40 MG/4 ML VIAL IV PUSH ONE (13:00)
--- NOTE | 2017-07-01 14:30 | RADRPT ---
EXAM DATE/TIME: 07/01/2017 13:54 [place] COMPARISON: CHEST PA & LAT, July 01, 2017, 9:59. INDICATIONS : Short of breath, evaluate for pneumonia. RADIATION DOSE: 20.94 CTDIvol (mGy) ; Patient body habitus MEDICAL HISTORY : Cardiovascular disease. Hypertension. TB SURGICAL HISTORY : Tubal ligation. lithrotripsy ENCOUNTER: Initial ACUITY: 1 day PAIN SCALE: 5/10 LOCATION: chest TECHNIQUE: Volumetric scanning of the chest was performed. Using automated exposure control and adjustment of t he mA and/or kV according to patient size, radiation dose was kept as low as reasonably achievable to obtain optimal diagnostic quality images. DICOM format image data is available electronically for r eview and comparison. Follow-up recommendations for detected pulmonary nodules are based at a minimum on nodule size and pa tient risk factors according to Fleischner Society Guidelines. FINDINGS: LUNGS: Patchy, bilateral perihilar airspace disease with peripheral sparing. PLEURAE: There is no pleural thickening or pleural effusion. MEDIASTINUM: The heart and great vessels demonstrate no acute abnormality. There is no mediastinal or hilar lymph adenopathy. AXILLAE: Within normal limits. No lymphadenopathy. MUSCULOSKELETAL: Within normal limits for patient age. MISCELLANEOUS: The visualized upper abdominal organs demonstrate no acute abnormality. CONCLUSION: 1. Bilateral perihilar patchy airspace disease with peripheral sparing. 2. Diagnostic considerations include CHF, diffuse alveolar hemorrhage or hypersensitivity pneumonitis . Rodney Arvizu MD on July 01, 2017 at 14:10 Board Certified Radiologist. This report was verified electronically.
[2017-07-01] MEDS: LEVOFLOXACIN 750 MG TAB PO SCH (14:34)
[2017-07-01] MEDS ORDERED: POTASSIUM CHLORIDE 20 MEQ CONTROLLED RELEASE TAB PO ONE (18:00)
[2017-07-01] MEDS: ZOLPIDEM TARTRATE 5 MG TAB PO PRN (22:26)
[2017-07-02] VITALS: PULSE 81
--- NOTE | 2017-07-02 00:48 | MB ---
cc: Michael Rodriguez MD DATE: 07/01/2017 REASON FOR CONSULTATION: Question pneumonia. HISTORY OF PRESENT ILLNESS: The patient is a 42-year-old female admitted with abdominal pain and urinary tract infection, possibly underlying pyelonephritis. The patient does have history of renal calculi. She states she has had over 13 lithotripsies in the past. The patient has been treated with antibiotic therapy. She states she is feeling much better at this point. She denies shortness of breath. Occasional dry cough, no expectoration. No hemoptysis. No TB. No previous industrial exposure. Her CT scan of the chest is with perihilar patchy infiltrates, congestive heart failure suspect. The patient is morbidly obese. She does snore loudly while sleeping and is tired and sleepy in the daytime. PAST MEDICAL HISTORY: Multiple renal calculi as mentioned above, recurrent UTI, hypertension, degenerative joint disease, mostly the right knee; history of sciatica, has history of right renal stent placement, in the past, fracture of the right arm with plate and screw placement. MEDICATIONS: Include amlodipine, hydrochlorothiazide, fenofibrate, and currently antibiotic therapy for underlying UTI and probable pyelonephritis. ALLERGIES: KETOROLAC, CODEINE, TRAMADOL. FAMILY HISTORY: Positive for heart disease and colon cancer. SOCIAL HISTORY: Does not work. Lives with daughter. Smokes half a pack of cigarettes a day, used to smoke 1-1/2 packs. Does not drink any alcohol, does not use drugs. REVIEW OF SYSTEMS: A 12-point review of systems is as per HPI and past history, otherwise negative. PHYSICAL EXAMINATION: GENERAL: The patient is alert. VITAL SIGNS: Temperature 97.6, pulse 90, respiration 18, blood pressure 130/70. Oxygen saturation 94% on room air. HEENT: Unremarkable. Eyes without icterus. NECK: Without adenopathy or thyroid enlargement. Trachea central. CHEST: Without dullness to percussion. Clear to auscultation. HEART: PMI not appreciated. S1, S2 audible. No murmur, no rub. ABDOMEN: Lax. Audible bowel sounds. EXTREMITIES: No clubbing, cyanosis or edema. SKIN: Normal. No lymphadenopathy. LABORATORY DATA: White count 14,000, hemoglobin 10, hematocrit 30, platelets are 369,000. Sodium 137, potassium earlier today was 2.8, BUN 10, creatinine 0.8. INR is 1.0. A CT of the chest done today with patchy perihilar congestion and/or airspace disease; CHF or pneumonia suspect. IMPRESSION: 1. Pyelonephritis. 2. Question pneumonia, question congestive change by CT of the chest. 3. Recurrent renal calculi. 4. Umbilical hernia. The patient seen by surgery. 5. Tobacco abuse. 6. Morbid obesity. 7. Sleep disordered breathing, obstructive sleep apnea suspect. 8. Hypertension. 9. Hypokalemia. PLAN: The patient has no shortness of breath, fever or oxygen desaturation at this time. The findings on CT scan are nonspecific. An echocardiogram to assess left ventricular performance and possibility of underlying congestive heart failure needs to be undertaken. Pulmonary function needs to be undertaken as well. The patient is being treated for underlying kidney infection, which may be improving her lung infection, if indeed this is present. She has no evidence of eosinophilia by CBC. Will follow her course along with you, and a followup CT scan in a few weeks probably would be appropriate prior to introducing more extensive evaluation of her pulmonary status. I do thank you for asking me to partake in Mrs. Justin's care. Michael Rodriguez MD WWW/ , 11:28 PM , 12:47 AM
[2017-07-02] MEDS: HEPARIN SODIUM - SQ 10,000 UNITS/ML VIAL SQ SCH (01:31)
[2017-07-02] MEDS: ACETAMINOPHEN/HYDROcodone 325 MG/7.5 MG TAB PO PRN ×2 (03:19→08:13)
[2017-07-02 04:00] VITALS: PULSE 78
[2017-07-02 04:20] VITALS: BP 139/62; PULSE 78; RESP 18; TEMP 97.6; O2SAT 95
[2017-07-02] MEDS: RESP: ALBUTEROL 2.5 MG/IPRATROPIUM 0.5 MG NEB (SCH) INH ×2 (04:32→09:17)
[2017-07-02 07:16] LABS: HEMATOCRIT 32.4 % (35.0-46.0); HEMOGLOBIN 10.9 GM/DL (11.6-15.3); MEAN CORPUSCULAR HEMOGLOBIN 29.7 PG (27.0-34.0); MEAN CORPUSCULAR HGB CONC 33.8 % (32.0-36.0); MEAN PLATELET VOLUME 8.8 FL (7.0-11.0); PLATELET COUNT 400 TH/MM3 (150-450); RED BLOOD COUNT 3.68 MIL/MM3 (4.00-5.30); WHITE BLOOD COUNT 13.8 TH/MM3 (4.0-11.0)
[2017-07-02 07:39] LABS: CALCIUM 9.2 MG/DL (8.5-10.1); CREATININE 0.8 MG/DL (0.50-1.00)
[2017-07-02 08:00] VITALS: BP 149/77; PULSE 82; PULSE 84; RESP 19; TEMP 97.5; O2SAT 96
[2017-07-02] MEDS: INSULIN ASPART SUPPLEMENTAL SCALE SQ SCH (08:00)
[2017-07-02] MEDS ORDERED: POTASSIUM CHLORIDE 20 MEQ CONTROLLED RELEASE TAB PO ONE (08:15)
[2017-07-02] MEDS ORDERED: POTASSIUM CHLORIDE 20 MEQ CONTROLLED RELEASE TAB PO SCH (09:00)
[2017-07-02] MEDS: SODIUM CHLORIDE 0.9% FLUSH 10 ML FLUSH IV FLUSH SCH (09:00)
[2017-07-02] MEDS: REMOVE OLD PATCH T-DERMAL SCH (09:00)
[2017-07-02] MEDS: NICOTINE 7 MG/24 HR PATCH T-DERMAL SCH (09:00)
[2017-07-02] MEDS: LEVOFLOXACIN 750 MG TAB PO SCH (09:08)
[2017-07-02] MEDS: ATORVASTATIN 40 MG TAB PO SCH (09:08)
[2017-07-02] MEDS: amLODIPine BESYLATE 5 MG TAB PO SCH (09:11)
[2017-07-02] MEDS: DOCUSATE SODIUM 50 MG/SENNA 8.6 MG TAB PO SCH (09:11)
[2017-07-02] MEDS: guaiFENesin E.R. 600 MG TAB PO SCH (09:11)
[2017-07-02] MEDS: BACITRACIN TOP OINT 15 GM TUBE TOPICAL SCH (09:12)
[2017-07-02] MEDS ORDERED: LEVA750T9 PO (09:12)
[2017-07-02] MEDS ORDERED: FURO20TA PO (09:12)
[2017-07-02] MEDS ORDERED: ALBUAER3 INH (09:12)
[2017-07-02] MEDS ORDERED: PRED20 PO (09:14)
[2017-07-02] MEDS ORDERED: predniSONE 20 MG TAB PO SCH (09:15)
[2017-07-02] MEDS ORDERED: HYDR-3288 PO (09:16)
[2017-07-02] MEDS ORDERED: METF500T PO (09:16)
[2017-07-02 09:18] VITALS: O2SAT 96
--- NOTE | 2017-07-02 09:20 | HHI.DCPOC ---
Discharge Care Plan Diagnosis: (1) Pneumonia (2) Pyelonephritis (3) Acute kidney injury (4) Diabetes mellitus (5) Severe sepsis (6) COPD (chronic obstructive pulmonary disease) (7) Cellulitis of umbilicus (8) Hypertriglyceridemia without hypercholesterolemia Goals to Promote Your Health * To prevent worsening of your condition and complications * To maintain your health at the optimal level Directions to Meet Your Goals Take your medications as prescribed Follow your dietary instruction Follow activity as directed Keep your appointments as scheduled Take your immunizations and boosters as scheduled If your symptoms worsen call your PCP, if no PCP go to Urgent Care Center or Emergency Room Smoking is Dangerous to Your Health. Avoid second hand smoke Call the 24-hour hour crisis hotline for domestic abuse at Dennise Ayala MD R2 July 02, 2017 09:20
--- NOTE | 2017-07-02 09:24 | HHI.DS ---
Discharge Summary Admission Date June 28, 2017 at 14:51 Discharge Date: July 02, 2017 Admitting Diagnosis Pneumonia, pyelonephritis, hypokalemia, sepsis, cellulitis (1) Severe sepsis Diagnosis: Principal Plan: ICD Codes: A41.9 - Sepsis, unspecified organism; R65.20 - Severe sepsis without septic shock Status: Resolved (2) Pyelonephritis Diagnosis: Principal ICD Codes: N12 - Tubulo-interstitial nephritis, not specified as acute or chronic Status: Acute (3) Pneumonia Diagnosis: Principal ICD Codes: J18.9 - Pneumonia, unspecified organism Status: Acute (4) Acute kidney injury Diagnosis: Principal ICD Codes: N17.9 - Acute kidney failure, unspecified Status: Resolved (5) Cellulitis of umbilicus Diagnosis: Secondary ICD Codes: L03.316 - Cellulitis of umbilicus Status: Acute (6) HTN (hypertension) Diagnosis: Secondary ICD Codes: I10 - Essential (primary) hypertension (7) Diabetes mellitus ICD Codes: E11.9 - Type 2 diabetes mellitus without complications (8) Hypokalemia Diagnosis: Secondary ICD Codes: E87.6 - Hypokalemia Status: Acute (9) Smoking Diagnosis: Secondary ICD Codes: F17.200 - Nicotine dependence, unspecified, uncomplicated Brief History 42-year-old female with history of HTN, osteoarthritis, sciatica, multiple kidney stones with over 13 lithotripsies, presents to the ED with fevers and abdominal pain. Patient reports that she has had 2 day history of severe stomach pain and fevers. She reports that her fever started 2 days ago, highest recorded at home orally was 103.2. She endorses chills. She states that around this time she started having belly pain around umbilical region and noticed that her belly button was erythematous and draining white pus. She denies history of umbilical hernia. Reports and tubal ligation in 2005. She also endorses right sided CVA tenderness and dysuria for the last couple days. Reports history of UTIs. Most recent UTI was in April and she was hospitalized at [facility] in [facility]. Reports that they treated her with Bactrim. She endorses one episode of nonbloody vomiting. She also endorses dry cough. Denies vaginal discharge, chest pain, shortness of breath, vaginal discharge, and diarrhea. She reports that she is planning to get gastric bypass surgery in the future. She states that she has lost 40 pounds in the past 6 months. She states that ever since she stopped drinking Mountain Dew, she has had severe kidney infections. She reports that she drank 12 cans of Mountain Dew per day for the past couple of years. CBC/BMP: 07/02/17 0647 07/02/17 0647 Significant Findings Laboratory Tests Test 06/29/17 13:58 06/29/17 21:59 06/30/17 05:40 07/01/17 06:20 Blood Urea Nitrogen 21 MG/DL (7-18) 20 MG/DL (7-18) 20 MG/DL (7-18) Creatinine 1.31 MG/DL (0.50-1.00) 1.17 MG/DL (0.50-1.00) 1.09 MG/DL (0.50-1.00) Random Glucose 186 MG/DL (74-106) 207 MG/DL (74-106) Potassium Level 2.9 MEQ/L (3.5-5.1) 3.1 MEQ/L (3.5-5.1) 3.2 MEQ/L (3.5-5.1) Carbon Dioxide Level 19.5 MEQ/L (21.0-32.0) 18.6 MEQ/L (21.0-32.0) 20.4 MEQ/L (21.0-32.0) Estimat Glomerular Filtration Rate 44 ML/MIN (>89) 50 ML/MIN (>89) 55 ML/MIN (>89) White Blood Count 14.3 TH/MM3 (4.0-11.0) Red Blood Count 3.39 MIL/MM3 (4.00-5.30) Hemoglobin 10.2 GM/DL (11.6-15.3) Hematocrit 30.2 % (35.0-46.0) Chloride Level 109 MEQ/L (98-107) B-Type Natriuretic Peptide 150 PG/ML (0-100) Test 07/01/17 09:00 07/02/17 06:20 07/02/17 06:47 White Blood Count 14.2 TH/MM3 (4.0-11.0) 13.8 TH/MM3 (4.0-11.0) Red Blood Count 3.44 MIL/MM3 (4.00-5.30) 3.68 MIL/MM3 (4.00-5.30) Hemoglobin 10.1 GM/DL (11.6-15.3) 10.9 GM/DL (11.6-15.3) Hematocrit 29.7 % (35.0-46.0) 32.4 % (35.0-46.0) Random Glucose 118 MG/DL (74-106) 207 MG/DL (74-106) Potassium Level 2.8 MEQ/L (3.5-5.1) 3.2 MEQ/L (3.5-5.1) Carbon Dioxide Level 19.2 MEQ/L (21.0-32.0) Estimat Glomerular Filtration Rate 75 ML/MIN (>89) 78 ML/MIN (>89) Blood Gas HCO3 21 mmol/L (22-26) Blood Gas Base Excess -3.1 mmol/L (-2-2) Blood Gas Oxygen Saturation 88 % (90-100) Arterial Blood Partial Pressure CO2 34 mmHg (38-42) Blood Gas Hemoglobin 11.2 G/DL (12.0-16.0) Imaging Last 72 hours Impressions Chest X-Ray 07/01/17 0600 Signed Impressions: Service Date/Time: Saturday, July 01, 2017 09:59 - CONCLUSION: 1. Predominately perihilar persistent airspace infiltrates. Again, diagnostic considerations include vascular congestion or possibly a hypersensitivity pneumonitis. 2. Borderline prominent but well compensated heart Rodney Arvizu MD Chest CT 07/01/17 0000 Signed Impressions: Service Date/Time: Saturday, July 01, 2017 13:54 - CONCLUSION: 1. Bilateral perihilar patchy airspace disease with peripheral sparing. 2. Diagnostic considerations include CHF, diffuse alveolar hemorrhage or hypersensitivity pneumonitis. Rodney Arvizu MD Chest X-Ray 06/30/17 0000 Signed Impressions: Service Date/Time: June 10:28 - CONCLUSION: 1. Bilateral infiltrates. There has been mild interval worsening compared to previous dated 06/28/17. Johan Caal MD PE at Discharge GENERAL: Obese patient, lying in bed, in no acute distress SKIN: Skin around umbilicus much improved. No fluctuance noted. HEAD: Atraumatic. Normocephalic. No temporal or scalp tenderness. CARDIOVASCULAR: Regular rate and rhythm without murmurs, gallops, or rubs. RESPIRATORY: Moving air well, no wheezes or crackles but dull in the lung bases NEUROLOGICAL: Awake and alert. Hospital Course Patient was managed with IV antibiotics and IV fluids for severe sepsis, pneumonia, and pyelonephritis. She did have an episode where she was very short of breath and required oxygen. She received duoneb and steroid treatments during her hospital stay with marked clinical improvement. A CT chest was performed which was non-specific with compensated CHF, alveolar hemorrhage, and hypersensitivity pneumonitis as diagnostic considerations. Pulmonary was consulted and recommended repeat chest CT in a couple of weeks. Patient will also benefit from PFTs as an outpatient and optimization of treatment for suspected COPD. Surgery was consulted for the umbilical hernia and recommended Bactroban ointment twice daily with follow-up for possible surgery in 6-8 weeks. Patient was discharged home in stable condition with prescriptions for Levaquin and a short course of prednisone. Pt Condition on Discharge: Stable Discharge Disposition: Discharge Home Discharge Instructions DIET: Follow Instructions for: Heart Healthy Diet, Diabetic Diet Activities you can perform: Regular-No Restrictions Follow up Referrals: PCP Follow-up - 1 Week Surgical - 6 Weeks New Orders: CT THORAX W/O CONTRAST (CHEST) - 3 Weeks ECHO 2D W/DOPP ROUTN - 1 Week LIPID PROFILE - 6 Weeks PFT PRE/POST BRONCH - 6 Weeks New Medications: Albuterol 8.5 GM Inh (Proair Hfa 8.5 GM Inh) 90 Mcg/Act Aer 2 PUFF INH Q4-6H PRN for SHORTNESS OF BREATH, #1 INHALER 0 Refills 108 mcg/actuation Furosemide (Furosemide) 20 Mg Tab 20 MG PO DAILY for 3 Days, #3 TAB 0 Refills Hydrocodone-Acetaminophen ([place]) 7.5-325 mg Tab 1 TAB PO Q4H PRN for PAIN, #18 TAB 0 Refills Ipratropium-Albuterol Neb (Duoneb) 0.5-2.5 Mg/3 Ml Neb 1 NEBULE INH Q4HR NEB for SHORTNESS OF BREATH, #120 NEBULE 0 Refills Levofloxacin (Levaquin) 750 Mg Tablet 750 MG PO DAILY for Infection for 6 Days, #6 TAB 0 Refills Metformin (Metformin) 500 Mg Tab 500 MG PO BIDPC for Blood Sugar Management, #28 TAB 0 Refills Nebulizer (Nebulizer) 1 Mis Mis EA .XX DIRECTED for Breathing Treatment, #1 0 Refills Prednisone (Prednisone) 20 Mg Tab 20 MG PO DAILY for 3 Days, #3 TAB 0 Refills Bacitracin (Topical) (Qc Bacitracin) 500 Unit/Gram Oin 1 APPLIC TOPICAL Q12HR, #1 TUBE Continued Medications: Amlodipine (Amlodipine) 5 Mg Tab 5 MG PO DAILY for Blood Pressure Management, #30 TAB 0 Refills Fenofibrate (Fenofibrate) 48 Mg Tab 48 MG PO DAILY, #30 TAB 0 Refills Hydrochlorothiazide (Hydrochlorothiazide) 25 Mg Tab 25 MG PO DAILY, #30 TAB 0 Refills Discontinued Medications: Amlodipine (Amlodipine) 5 Mg Tab 5 MG PO DAILY for Blood Pressure Management, #30 TAB 0 Refills Hydrocodone-Acetaminophen (Hydrocodone-Acetaminophen) 5-300 Mg Tab 1 TAB PO Q6H PRN for PAIN, TAB 0 Refills Dennise Ayala MD R2 July 02, 2017 9:24 am
--- NOTE | 2017-07-02 10:02 | HHI.FPPN ---
Subjective Remarks Patient is doing better this morning and is breathing much better. She had a lot of urine output in the last 24 hours. She is excited about going home. (Dennise Ayala MD R2) Objective Vitals Vital Signs Date Time Temp Pulse Resp B/P (MAP) Pulse Ox O2 Delivery O2 Flow Rate FiO2 07/02/17 09:18 96 21 07/02/17 08:00 97.5 82 19 149/77 (101) 96 07/02/17 04:20 97.6 78 18 139/62 (87) 95 07/02/17 04:00 78 07/02/17 00:00 81 07/01/17 23:22 97.5 88 18 143/75 (97) 94 07/01/17 20:15 Room Air 07/01/17 20:13 97.6 92 18 126/69 (88) 94 07/01/17 20:04 95 21 07/01/17 20:00 93 07/01/17 16:00 98.1 92 20 141/89 (106) 93 07/01/17 16:00 93 07/01/17 12:00 97.1 98 20 136/80 (98) 94 07/01/17 10:16 91 21 I/O 07/01/17 07/01/17 07/01/17 07/02/17 07/02/17 07/02/17 07:00 15:00 23:00 07:00 15:00 23:00 Intake Total 1060 ml 840 ml 1440 ml Output Total 1200 ml 1430 ml 2800 ml Balance -140 ml -590 ml -1360 ml Intake Oral 960 ml 840 ml 1440 ml IV Total 100 ml Output Urine Total 1200 ml 1430 ml 2800 ml # Bowel Movements 0 1 (Dennise Ayala MD R2) Result Diagram: 07/02/17 0647 07/02/17 0647 Imaging Last 72 hours Impressions Chest X-Ray 07/01/17 0600 Signed Impressions: Service Date/Time: Saturday, July 01, 2017 09:59 - CONCLUSION: 1. Predominately perihilar persistent airspace infiltrates. Again, diagnostic considerations include vascular congestion or possibly a hypersensitivity pneumonitis. 2. Borderline prominent but well compensated heart Rodney Arvizu MD Chest CT 07/01/17 0000 Signed Impressions: Service Date/Time: Saturday, July 01, 2017 13:54 - CONCLUSION: 1. Bilateral perihilar patchy airspace disease with peripheral sparing. 2. Diagnostic considerations include CHF, diffuse alveolar hemorrhage or hypersensitivity pneumonitis. Rodney Arvizu MD Chest X-Ray 06/30/17 0000 Signed Impressions: Service Date/Time: June 10:28 - CONCLUSION: 1. Bilateral infiltrates. There has been mild interval worsening compared to previous dated 06/28/17. Johan Caal MD Objective Remarks GENERAL: Obese patient, lying in bed, in no acute distress HEAD: Atraumatic. Normocephalic. No temporal or scalp tenderness. CARDIOVASCULAR: Regular rate and rhythm without murmurs, gallops, or rubs. RESPIRATORY: Moving air well, no wheezes or crackles but dull in the lung bases especially on the right NEUROLOGICAL: Awake and alert. (EkoDennise MD R2) A/P Assessment and Plan 42-year-old female with history of HTN, osteoarthritis, sciatica, multiple kidney stones with over 13 lithotripsies, presented to the ED with fevers and abdominal pain. Patient admitted for severe sepsis and workup found to have pneumonia, pyelonephritis, and umbilical cellulitis. Discharge Planning Discharge home today (EkDennise lincoln MD R2) Problem List: (1) Severe sepsis ICD Codes: A41.9 - Sepsis, unspecified organism; R65.20 - Severe sepsis without septic shock Status: Resolved Plan: Resolved. Patient met severe sepsis criteria due to fever of 100.8, tachycardia at 126 and WBC of 20.5 with known source of infection ( pyelonephritis, pneumonia, cellulitis of umbilicus) and organ damage ( creatinine elevated at 1.62). Labs and Imaging: WBC elevated at 20.5 with left shift, improved to 13.8 today Chest x-ray on admission demonstrates increased right upper lung zone parenchymal opacity may reflect developing airspace disease CXR on 06/30 showed worsening of bilateral infiltrates See problem list and plan below (2) Pneumonia ICD Codes: J18.9 - Pneumonia, unspecified organism Status: Acute Plan: Ddx includes pneumonia, CHF, alveolar hemorrhage CT chest performed on 07/01/2018 showed perihilar persistent airspace infiltrates. * Diagnostic considerations include vascular congestion or possibly a hypersensitivity pneumonitis * Borderline prominent but well compensated heart Continue Levaquin 750 mg PO daily - started on 07/01/2017 - discharge with enough to complete a total of 12 days of treatment, taking other antibiotics received during admission into consideration Start Prednisone 20 mg PO daily - discharge with 3 days of treatment as an outpatient Mucinex for cough Duonebs every 6h Incentive spirometer Pulmonary consult - appreciate recommendations * Continue current management * Bedside PFT * Repeat CT chest in a couple of weeks * ECHO to rule out cardiac source (3) Pyelonephritis ICD Codes: N12 - Tubulo-interstitial nephritis, not specified as acute or chronic Status: Acute Plan: Patient has history of multiple kidney stones and history of UTIs UA positive for large leukocyte esterases, positive nitrates, bacteria. CT demonstrate slight perinephric stranding on the left. Urine culture gre E Coli sensitive to Ciprofloxacin, resistant to Bactrim Medications Continue Levaquin 750 mg Po daily (4) Acute kidney injury ICD Codes: N17.9 - Acute kidney failure, unspecified Status: Resolved Plan: Resolved -Creatinine wnl -On oral fluids -Continue to monitor (5) Cellulitis of umbilicus ICD Codes: L03.316 - Cellulitis of umbilicus Status: Acute Plan: Erythematous and purulent drainage of the umbilicus on admission Resolved Wound culture showed heavy growth of normal skin robi General surgery consulted recommendations appreciated -Bacitracin twice daily, patient follow-up with surgery outpatient for elective umbilical hernia repair in 6-8 weeks (6) HTN (hypertension) ICD Codes: I10 - Essential (primary) hypertension Plan: Continue home amlodipine 5 mg p.o. daily Clonidine 0.1 mg p.o. every 6 hours as needed for blood pressure greater than 180/100 (7) Diabetes mellitus ICD Codes: E11.9 - Type 2 diabetes mellitus without complications Plan: -Newly diagnosed, A1C 6.7 on admission -Discharge on Metformin 500mg PO BIDPC -PCP to titrate up as needed (8) Hypokalemia ICD Codes: E87.6 - Hypokalemia Status: Acute Plan: Monitor and replete as needed (9) Smoking ICD Codes: F17.200 - Nicotine dependence, unspecified, uncomplicated Plan: Nicotine patch 7mg q24hr Patient is working on quitting in preparation for gastric bypass surgery (10) Nutrition, metabolism, and development symptoms ICD Codes: R63.8 - Other symptoms and signs concerning food and fluid intake Plan: Diet: Diabetic diet Fluids: oral fluids only Electrolytes: replace as needed Vitals every 4, monitor I's and O's DVT ppx: SCDs and heparin 5000 units every 12h PT consulted SDW Dr. Hernández, Dr. Rasmussen, and Shae Lucas, MS4 (EkoDennise MD R2) Problem List: (1) Severe sepsis ICD Codes: A41.9 - Sepsis, unspecified organism; R65.20 - Severe sepsis without septic shock Status: Resolved Plan: Resolved. Patient met severe sepsis criteria due to fever of 100.8, tachycardia at 126 and WBC of 20.5 with known source of infection ( pyelonephritis, pneumonia, cellulitis of umbilicus) and organ damage ( creatinine elevated at 1.62). Labs and Imaging: WBC elevated at 20.5 with left shift, improved to 13.8 today Chest x-ray on admission demonstrates increased right upper lung zone parenchymal opacity may reflect developing airspace disease CXR on 06/30 showed worsening of bilateral infiltrates See problem list and plan below (2) Pneumonia ICD Codes: J18.9 - Pneumonia, unspecified organism Status: Acute Plan: Ddx includes pneumonia, CHF, alveolar hemorrhage CT chest performed on 07/01/2018 showed perihilar persistent airspace infiltrates. * Diagnostic considerations include vascular congestion or possibly a hypersensitivity pneumonitis * Borderline prominent but well compensated heart Continue Levaquin 750 mg PO daily - started on 07/01/2017 - discharge with enough to complete a total of 12 days of treatment, taking other antibiotics received during admission into consideration Start Prednisone 20 mg PO daily - discharge with 3 days of treatment as an outpatient Mucinex for cough Duonebs every 6h Incentive spirometer Pulmonary consult - appreciate recommendations * Continue current management * Bedside PFT * Repeat CT chest in a couple of weeks * ECHO to rule out cardiac source (3) Pyelonephritis ICD Codes: N12 - Tubulo-interstitial nephritis, not specified as acute or chronic Status: Acute Plan: Patient has history of multiple kidney stones and history of UTIs UA positive for large leukocyte esterases, positive nitrates, bacteria. CT demonstrate slight perinephric stranding on the left. Urine culture gre E Coli sensitive to Ciprofloxacin, resistant to Bactrim Medications Continue Levaquin 750 mg Po daily (4) Acute kidney injury ICD Codes: N17.9 - Acute kidney failure, unspecified Status: Resolved Plan: Resolved -Creatinine wnl -On oral fluids -Continue to monitor (5) Cellulitis of umbilicus ICD Codes: L03.316 - Cellulitis of umbilicus Status: Acute Plan: Erythematous and purulent drainage of the umbilicus on admission Resolved Wound culture showed heavy growth of normal skin robi General surgery consulted recommendations appreciated -Bacitracin twice daily, patient follow-up with surgery outpatient for elective umbilical hernia repair in 6-8 weeks (6) HTN (hypertension) ICD Codes: I10 - Essential (primary) hypertension Plan: Continue home amlodipine 5 mg p.o. daily Clonidine 0.1 mg p.o. every 6 hours as needed for blood pressure greater than 180/100 (7) Diabetes mellitus ICD Codes: E11.9 - Type 2 diabetes mellitus without complications Plan: -Newly diagnosed, A1C 6.7 on admission -Discharge on Metformin 500mg PO BIDPC -PCP to titrate up as needed (8) Hypokalemia ICD Codes: E87.6 - Hypokalemia Status: Acute Plan: Monitor and replete as needed (9) Smoking ICD Codes: F17.200 - Nicotine dependence, unspecified, uncomplicated Plan: Nicotine patch 7mg q24hr Patient is working on quitting in preparation for gastric bypass surgery (10) Nutrition, metabolism, and development symptoms ICD Codes: R63.8 - Other symptoms and signs concerning food and fluid intake Plan: Diet: Diabetic diet Fluids: oral fluids only Electrolytes: replace as needed Vitals every 4, monitor I's and O's DVT ppx: SCDs and heparin 5000 units every 12h PT consulted SDW Dr. Hernández, Dr. Rasmussen, and Shae Lucas, MS4 I have reviewed the patients past medical/surgical and social histories and updated as appropriate. Parts of this note were created using [employer] voice recognition software program. While efforts were made to correct any mistakes made by this software, some mistakes, errors, and omissions may remain in the final note that were not caught when the note was originally created. Plan of care was discussed and agreed upon with the patient as specifically documented in the above note. An opportunity to ask questions with explanation was provided. Medications were reviewed and discussed as appropriate including side effects and risks vs. benefit. Pt. was instructed should any symptoms worsen he should call for an E[facility] appointment or report to the emergency department for further evaluation. Patient voiced understanding on all information reviewed and discussed. Spoke to the patient at length about the fact that she is still ill. She needs to follow-up with her primary care physician. She needs to continue taking her antibiotics. She will most likely need follow-up for her urinary issues. I do believe that the patient most likely has CHF. Will order an echo for it to be performed an outpatient. Overall she is doing significantly better. I discussed that at length about returning back to the hospital if she has any further issues, or starts to feel worse. We spoke about her current medication regimen. We discussed about her new diagnosis of diabetes. (Shiv Hernández MD) Problem Qualifiers (1) Pneumonia: Qualified Codes: J18.9 - Pneumonia, unspecified organism Dennise Ayala MD R2 July 02, 2017 10:02 Shiv Hernández MD July 02, 2017 10:47
== END 2017-07-02 12:30 | disposition home or self-care (01) | DRG 871 ==
LOC: NEPC 10:59 → NEDA 14:51 → N04B 18:49
PROVIDERS: ADMIT Family Medicine; ATTEND Family Medicine
DX: A41.9 Sepsis, unspecified organism (principal); J18.9 Pneumonia, unspecified organism; N17.9 Acute kidney failure, unspecified; I11.0 Hypertensive heart disease with heart failure; I50.9 Heart failure, unspecified; J44.0 Chronic obstructive pulmonary disease with (acute) lower respiratory infection; N12 Tubulo-interstitial nephritis, not specified as acute or chronic; L03.316 Cellulitis of umbilicus; Z68.44 Body mass index [BMI] 60.0-69.9, adult; R65.20 Severe sepsis without septic shock; E87.6 Hypokalemia; K42.9 Umbilical hernia without obstruction or gangrene; E78.00 Pure hypercholesterolemia, unspecified; E11.65 Type 2 diabetes mellitus with hyperglycemia; N20.0 Calculus of kidney; K21.9 Gastro-esophageal reflux disease without esophagitis; E66.01 Morbid (severe) obesity due to excess calories; M17.11 Unilateral primary osteoarthritis, right knee; M19.90 Unspecified osteoarthritis, unspecified site; M54.30 Sciatica, unspecified side; E78.1 Pure hyperglyceridemia; F17.210 Nicotine dependence, cigarettes, uncomplicated; G47.33 Obstructive sleep apnea (adult) (pediatric); R63.8 Other symptoms and signs concerning food and fluid intake; Z87.440 Personal history of urinary (tract) infections; Z87.442 Personal history of urinary calculi
CPT/HCPCS: 36600; 71045; 71046; 71250; 74177; 80048; 80053; 80061; 81001; 82550; 82805; 82948; 83036; 83605; 83690; 83735; 83880; 84484; 84703; 85025; 85027; 85610; 85730; 87040; 87070; 87077; 87086; 87186; 87205; 87804; 90732; 93005; 94150; 94618; 94640; 94664; 96361; 96365; 96367; 96375; 96376; J0696; J1644; J1815; J1940; J2270; J2543; J2765; J2920; J3370; J3480; J7030; J7040; J7050; J7512; Q9967